=== PATIENT | female | born 1930 | race African-American/Black ===

== ENCOUNTER 2019-10-28 01:04 | Inpatient (IN) | payer MEDICARE, BC ==
[2019-10-28] MEDS ORDERED: Succinylcholine Chloride 20 MG/ML 10 ml SYRINGE FS ONE (01:11)
[2019-10-28 01:34] LABS: Hemoglobin 14.3 g/dL (12.0-16.0); Mean Corpuscular HGB CONC 32.2 g/dL (32.0-36.0); Mean Corpuscular Hemoglobin 30.5 pg (27.0-31.0); Mean Corpuscular Volume 94.7 fL (78.0-98.0); Mean Platelet Volume 7.6 fL (7.4-10.4); Platelet Count 167 thou/uL (130-400); RBC Distribution Width 13.4 % (11.5-14.5); Red Blood Cell (RBC) Count 4.68 mill/uL (4.20-5.40); White Blood Cell (WBC) Count 16.3 thou/uL (4.8-10.8)
[2019-10-28] MEDS ORDERED: Propofol 1,000 MG/100 ML VIAL IV ONE (01:34)
[2019-10-28 01:40] LABS: INR-International Normal Ratio 1.4; PTT 45.3 SEC (22.9-36.1); Prothrombin Time 17.4 SEC (12.0-14.7)
[2019-10-28 01:50] LABS: Band 3 % (5-11); Lymphocytes 40 % (21-51); MDiff Complete? YES; Monocytes 3 % (0-10); Neutrophil 54 % (42-75); Platelet Morphology Comment Appears Adequate; RBC Morphology Normal
[2019-10-28 01:52] LABS: ALT (SGPT) 166 U/L (8-55); AST (SGOT) 230 U/L (5-34); Albumin 3.4 g/dL (3.4-4.8); Alkaline Phosphatase 102 U/L (40-110); Anion Gap 21 mmol/L (10-20); BUN (Urea Nitrogen) 22 mg/dL (9.8-20.1); Bilirubin, Total 0.4 mg/dL (0.2-1.2); Calc. Creatinine Clearance 0 mL/min (70-130); Calcium 9.3 mg/dL (7.8-10.44); Carbon Dioxide 19 mmol/L (23-31); Chloride 102 mmol/L (98-107); Estimated GFR-MDRD 31; Globulin 4.1 g/dL (2.4-3.5); Glucose 238 mg/dL (83-110); Magnesium 2.4 mg/dL (1.6-2.6); Potassium 4.1 mmol/L (3.5-5.1); Protein, Total 7.5 g/dL (6.0-8.3); Sodium 138 mmol/L (136-145)
[2019-10-28 01:55] LABS: Actual Bicarbonate (HCO3a) 17.8 mEq/L (22-28); Analyzer IN Cardio ER; Base Excess (BEa) -8.1 mEq/L (-2.0 to +3.0); CO2 Tension 38.4 mmHg (35.0-45.0); Calcium, Ionized 1.23 mmol/L (1.12-1.30); Carboxyhemoglobin (COHb) 0.3 gm% (0.0-3.0); Hemoglobin (Hb) 15.6 g/dL (12.0-16.0); O2 Tension (PaO2) 191.3 mmHg (> 60.0); Potassium - ABG Lab 3.83 mmol/L (3.70-5.30); pH, Arterial 7.29 (7.35-7.45)
[2019-10-28 02:08] LABS: D-Dimer Test Greater than 20.00 *mcg/mL (0.27-0.43)
[2019-10-28 02:14] LABS: CKMB 1.5 ng/mL (0-6.6)
[2019-10-28] MEDS ORDERED: Piperacillin/Tazobactam 3.375 GM VIAL ONE (02:55)
[2019-10-28 02:58] LABS: Puncture Site RRA
[2019-10-28] MEDS ORDERED: Ondansetron PF 4 MG/2 ML Vial IVP PRN (03:05)
[2019-10-28] MEDS ORDERED: hydrALAZINE 20 MG/ML VIAL SLOW IVP PRN (03:05)
[2019-10-28] MEDS ORDERED: HYDROcodone/Acetaminophen 5/325 mg Tablet PO PRN (03:06)
[2019-10-28] MEDS ORDERED: Acetaminophen 650 MG Suppository PR PRN (03:06)
[2019-10-28] MEDS ORDERED: Bisacodyl 5 MG TAB PO PRN (03:06)
[2019-10-28] MEDS ORDERED: Senokot S 8.6-50 MG TAB PO PRN (03:06)
[2019-10-28] MEDS ORDERED: Bisacodyl 10 MG SUPP PR PRN (03:06)
[2019-10-28] MEDS ORDERED: Sodium Chloride 0.9% (PF) 10 ML VIAL FS PRN (03:25)
[2019-10-28] MEDS ORDERED: Pantoprazole 40 MG VIAL IVP SCH (03:30)
[2019-10-28] MEDS ORDERED: Heparin 10,000 UNITS/ 10 ML VIAL SLOW IVP SCH ×2 (03:30→12:30)
[2019-10-28] MEDS ORDERED: Heparin 25,000 units/D5W 500 ML IVPB SCH ×2 (03:30→12:30)
--- NOTE | 2019-10-28 03:34 | PDOC.HHP ---
Hospitalist HPI - History of Present Illness Cardiac arrest History of Present Illness: Patient is an 89 year old female with PMH hypothyroidism, HTN who presents to hospital w/ cardiac arrest witnessed, recieved CPR, epi x 1, IO, LMA, acheived ROSC. Intubated in ED. on propofol origincally. imaging in ED and in ICU significant for CT - PE which was positive for PE on ED read, also bilateral lower extremity duplex positive for extensive DVT. GCS 3 currently, off of propofol for 30 min-1hr at time of my exam. family discussion held, patient has no history or risk factors for DVT/PE, no history (personal or family) of clots , has been getting short of breath for a month, went to PCP and was referred for echocardiogram but did not get study done due to fear per daughter. Initially discussed with Dr Love and planned for hypothermia protocol and heparin drip for PE and ROSC, however patient developed extensive bleeding including lower GI bleed with BRBPR x many episodes, also bleeding in higgins and IV site bleeding, coagulation studius obtained with low fibrinogen, high PT/ INR, high FDP. lactate initially 7.2, now improved to 4. LFTs elevated , TnI elevated, IVF filter considered but discussed with Dr Love and we decided relative contraindication w/ possible DIC and GI bleed. Patient developed myoclonus as well in ICU. Hospitalist ROS - Review of Systems Other: unable to obtain due to AMS Hospitalist History - Past Medical History Other Medical History: hypothyroid, HTN - Past Surgical History Other Surgical History: back surgery - Family History Family History: reports: no pertinent history Other Family History: cancer in siblings - Social History Other Social History: no drug or alcohol abuse, lives with family - Exam General - other findings: intubated, sedated Eye: PERRL ENT - other findings: ET tube in place Neck: supple, no JVD Heart: RRR, no murmur, no gallops, no rubs Respiratory: CTAB, no wheezes, no rales, no ronchi Gastrointestinal: soft, non-tender, non-distended, normal bowel sounds, no palpable masses, no hepatomegaly, no splenomegaly, no bruit Extremities: no cyanosis, no clubbing, no edema Skin: normal turgor, no lesions, no rashes Neurological - other findings: GCS 3, posturing, not responding to commands/pain Musculoskeletal - other findings: posturing Psychiatric - other findings: unable to evauate Hospitalist Results - Labs Result Diagrams: 10/28/19 05:19 10/28/19 04:40 Lab results: WBC 16.3 thou/uL (4.8-10.8) H 10/28/19 01:22 Hgb 14.3 g/dL (12.0-16.0) 10/28/19 01:22 Hct 44.3 % (36.0-47.0) 10/28/19 01:22 MCV 94.7 fL (78.0-98.0) 10/28/19 01:22 Plt Count 167 thou/uL (130-400) 10/28/19 01:22 Band Neuts % (Manual) 3 % (5-11) L 10/28/19 01:22 ABG pH 7.29 (7.35-7.45) L 10/28/19 01:52 ABG pCO2 38.4 mmHg (35.0-45.0) 10/28/19 01:52 ABG pO2 191.3 mmHg (> 60.0) H 10/28/19 01:52 Sodium 138 mmol/L (136-145) 10/28/19 01:22 Potassium 4.1 mmol/L (3.5-5.1) 10/28/19 01:22 Chloride 102 mmol/L (98-107) 10/28/19 01:22 Carbon Dioxide 19 mmol/L (23-31) L 10/28/19 01:22 BUN 22 mg/dL (9.8-20.1) H 10/28/19 01:22 Creatinine 1.87 mg/dL (0.6-1.1) H 10/28/19 01:22 Glucose 238 mg/dL (83-110) H 10/28/19 01:22 Lactic Acid 7.2 mmol/L (0.5-2.2) H* 10/28/19 02:16 Calcium 9.3 mg/dL (7.8-10.44) 10/28/19 01:22 Total Bilirubin 0.4 mg/dL (0.2-1.2) 10/28/19 01:22 AST 230 U/L (5-34) H 10/28/19 01:22 ALT 166 U/L (8-55) H 10/28/19 01:22 Alkaline Phosphatase 102 U/L (40-110) 10/28/19 01:22 CK-MB (CK-2) 1.5 ng/mL (0-6.6) 10/28/19 01:22 Troponin I 0.054 ng/mL (< 0.028) H 10/28/19 01:22 B-Natriuretic Peptide 57.8 pg/mL (0-100) 10/28/19 01:22 Serum Total Protein 7.5 g/dL (6.0-8.3) 10/28/19 01:22 Albumin 3.4 g/dL (3.4-4.8) 10/28/19 01:22 Additional comment: BP: 118/88 MAP: 98 Pulse: 78 Resp: 20 Temp: 96.1 (Criticore Temp) Pain: UTR O2 sat: 100 on (Ventilator) Time: 10/28/2019 03:15. EKG RBBB rate 120 vitals, labs, meds reviewed, EKG reviewed Hospitalist H&P A/P - Plan Plan: Patient is an 89 year old female with PMH hypothyroidism, HTN admitted for cardiac arrest. # pulmonary embolism with cardiac arrest and rosc - presents to hospital w/ cardiac arrest witnessed, recieved CPR, epi x 1, IO, LMA, acheived ROSC. Intubated in ED. on propofol originally. imaging in ED and in ICU significant for CT - PE which was positive for PE on ED read, also bilateral lower extremity duplex positive for extensive DVT. GCS 3 currently, off of propofol for 30 min-1hr at time of my exam. family discussion held, patient has no history or risk factors for DVT/PE, no history (personal or family) of clots, has been getting short of breath for a month, went to PCP and was referred for echocardiogram but did not get study done due to fear per daughter. - Initially discussed with Dr Love and planned for hypothermia protocol and heparin drip for PE and ROSC, however patient developed extensive bleeding including lower GI bleed with BRBPR x many episodes, also bleeding in higgins and IV site bleeding, coagulation studius obtained with low fibrinogen, high PT/ INR, high FDP. lactate initially 7.2, now improved to 4. LFTs elevated , TnI elevated, IVF filter considered but discussed with Dr Love and we decided relative contraindication w/ possible DIC and GI bleed. Patient developed myoclonus as well in ICU. # respiratory failure w/ hypoxia - s/p cardiac arrest, ABG improved with ventilation # myoclonus/seizure - perhaps suggests hypoxic injury, follow final CT head read - ativan given, keppra started - consider MRI or neurology consultation based on clinical course # lactic acidosis - improved with ventilation and measures described above # coagulopathy concerning for DIC - studies and clinical picture of bleeding suggests DIC, however with normal platelets unclear if intervention indicated. will consult hematology and discuss with pulmonary medicine team # elevated troponin, elevated LFTs - likely due to hypoxia, trend LFT/troponin # GI bleed - lower GI bleed, no history of GI conditions, perhaps due to coagulopathy - start IV ppi, consult GI # severe sepsis - due to above, continue abx and recieved IVF and lactate downtrending # bleed - likely due to coagulopathy, bladder irrigation ordered 75 minutes critical care time.
[2019-10-28 03:49] LABS: #Eosinphils 0.1 thou/uL (0.0-0.7); #Lymphocytes 2.5 thou/uL (1.20-3.40); #Monocytes 1.4 thou/uL (0.11-0.59); #Neutrophils 15.3 thou/uL (1.40-6.50); %Basophils 0.2 % (0.0-1.0); %Eosinophils 0.7 % (0.0-10.0); %Monocytes 7.1 % (0.0-10.0); Hemoglobin 14.4 g/dL (12.0-16.0); Mean Corpuscular Hemoglobin 29.7 pg (27.0-31.0); Mean Corpuscular Volume 92.8 fL (78.0-98.0); Mean Platelet Volume 7.3 fL (7.4-10.4); Platelet Count 181 thou/uL (130-400); RBC Distribution Width 13.4 % (11.5-14.5); Red Blood Cell (RBC) Count 4.86 mill/uL (4.20-5.40); White Blood Cell (WBC) Count 19.4 thou/uL (4.8-10.8)
[2019-10-28 04:04] LABS: Fibrinogen 138 mg/dL (253-463)
[2019-10-28 04:11] LABS: ALT (SGPT) 185 U/L (8-55); AST (SGOT) 277 U/L (5-34); Albumin 3.4 g/dL (3.4-4.8); Alkaline Phosphatase 96 U/L (40-110); Anion Gap 15 mmol/L (10-20); BUN (Urea Nitrogen) 24 mg/dL (9.8-20.1); Bilirubin, Direct 0.4 mg/dL (0.1-0.3); Bilirubin, Total 0.8 mg/dL (0.2-1.2); Calc. Creatinine Clearance 0 mL/min (70-130); Calcium 8.9 mg/dL (7.8-10.44); Carbon Dioxide 22 mmol/L (23-31); Chloride 105 mmol/L (98-107); Estimated GFR-MDRD 33; FSP-Qualitative ABNORMAL (Normal); FSP-Semiquantitative >=160 & <320 mcg/mL (Less than 5); Glucose 179 mg/dL (83-110); Magnesium 2.2 mg/dL (1.6-2.6); Potassium 3.2 mmol/L (3.5-5.1); Protein, Total 7.2 g/dL (6.0-8.3); Sodium 139 mmol/L (136-145)
[2019-10-28 04:22] LABS: Actual Bicarbonate (HCO3a) 19.1 mEq/L (22-28); Base Excess (BEa) -5.7 mEq/L (-2.0 to +3.0); CO2 Tension 35.6 mmHg (35.0-45.0); Calcium, Ionized 1.23 mmol/L (1.12-1.30); Carboxyhemoglobin (COHb) 0.8 gm% (0.0-3.0); Hemoglobin (Hb) 15.6 g/dL (12.0-16.0); Potassium - ABG Lab 3.33 mmol/L (3.70-5.30); pH, Arterial 7.35 (7.35-7.45)
[2019-10-28 04:25] LABS: Puncture Site LRADIAL
[2019-10-28] MEDS ORDERED: Sodium Chloride 0.9% 500 ML IV SCH (04:30)
[2019-10-28] MEDS ORDERED: Sodium Chloride 0.9% 1,000 ML IV SCH (04:30)
[2019-10-28] MEDS ORDERED: levETIRAcetam In NaCl (Iso-Os) 1,000 MG in Premix Bag 1 BAG IVPB SCH ×2 (05:24→05:37)
[2019-10-28 05:27] LABS: Lactic Acid 3.8 mmol/L (0.5-2.2)
[2019-10-28 05:28] LABS: ALT (SGPT) 192 U/L (8-55); AST (SGOT) 296 U/L (5-34); Albumin 3.5 g/dL (3.4-4.8); Alkaline Phosphatase 101 U/L (40-110); Anion Gap 16 mmol/L (10-20); BUN (Urea Nitrogen) 23 mg/dL (9.8-20.1); Bilirubin, Total 1.1 mg/dL (0.2-1.2); Calc. Creatinine Clearance 0 mL/min (70-130); Calcium 9.2 mg/dL (7.8-10.44); Carbon Dioxide 22 mmol/L (23-31); Chloride 103 mmol/L (98-107); Estimated GFR-MDRD 33; Glucose 190 mg/dL (83-110); Lipase 50 U/L (8-78); Potassium 3.4 mmol/L (3.5-5.1); Protein, Total 7.5 g/dL (6.0-8.3); Sodium 138 mmol/L (136-145)
[2019-10-28] MEDS ORDERED: Lorazepam 2 MG/ML VIAL SLOW IVP SCH ×2 (05:30→05:45)
[2019-10-28 05:33] LABS: Hemoglobin 13.9 g/dL (12.0-16.0); Mean Corpuscular HGB CONC 32.1 g/dL (32.0-36.0); Mean Corpuscular Hemoglobin 29.9 pg (27.0-31.0); Mean Corpuscular Volume 92.9 fL (78.0-98.0); Platelet Count 174 thou/uL (130-400); RBC Distribution Width 13.4 % (11.5-14.5); Red Blood Cell (RBC) Count 4.67 mill/uL (4.20-5.40); White Blood Cell (WBC) Count 16.2 thou/uL (4.8-10.8)
[2019-10-28 05:40] LABS: Troponin I 0.181 ng/mL (< 0.028)
[2019-10-28 05:44] LABS: INR-International Normal Ratio 1.5; PTT 30.6 SEC (22.9-36.1); Prothrombin Time 17.8 SEC (12.0-14.7)
[2019-10-28 05:50] LABS: Lactic Acid 4.1 mmol/L (0.5-2.2)
--- NOTE | 2019-10-28 07:54 | CON ---
DATE OF CONSULTATION: 10/28/2019 SERVICE: Pulmonary/Critical Care. REASON FOR CONSULTATION: ICU patient. HISTORY OF PRESENT ILLNESS: This patient is an 89-year-old female with past medical history significant for essentially nothing. She was in her usual state of health when there was an abrupt onset of some symptoms. She had a syncopal event. She was found to be pulseless. Chest compressions were done, but in a short period of time, apparently return of circulation was achieved. She was intubated en route to the hospital. In the emergency department, she was stabilized and subsequently tucked into the ICU. She was discovered to have very large pulmonary emboli and bilateral lower extremity DVTs. The clot burden was extensive, and she had a right ventricular heart strain present. That being said, she was profusely bleeding out of her bottom, her tract, and her central line that was placed, was oozing. She also had blood coming from her mouth and ET tube. As such, she was not a good candidate for anticoagulation at that moment. Overnight, she has not been on any sedation. Neurologically, she has an absolutely devastating exam. She cannot provide any additional elements of the history. PAST MEDICAL HISTORY: 1. Hypertension. 2. Dyslipidemia. 3. Gastroesophageal reflux disease. 4. Acute pulmonary embolism. PAST SURGICAL HISTORY: Back surgery. FAMILY HISTORY: Noncontributory. Multiple siblings have various forms of cancer. SOCIAL HISTORY: Negative for alcohol, tobacco, or illicit drug use. She previously lived with her daughter. ALLERGIES: CODEINE. MEDICATIONS: List of her inpatient medications were reviewed. Multiple small updates were made. REVIEW OF SYSTEMS: Cannot be obtained as the patient is currently completely obtunded. LABORATORY DATA: WBC 16.2, hemoglobin 13.9, and platelets 174,000. INR 1.5 and gently up-trending. Fibrinogen is low. D-dimer is extremely high. PH of 7.35, pCO2 of 35, pO2 of 92, corresponding to a saturation of 97%. Potassium 3.4, creatinine 1.76 and roughly stable. Lactic acid was originally 7.2, went down to 3.8, but is once again up-trending to 4.1. Liver function studies are gently up-trending. Troponin 0.18, it is also trending upwards. Amylase 180, lipase is extremely low. IMAGING DATA: 1. Ultrasound of bilateral lower extremities demonstrates bilateral DVTs. 2. CT of the brain demonstrates no obvious blood. I would not be able to appreciate subtle changes here. The read is currently pending. 3. CTA of the chest demonstrates extensive clot burden with large pulmonary emboli bilaterally. Aorta is dilated. There is some degree of atelectasis throughout bilateral lung bacon. There is reflux of contrast into the inferior vena cava. The right ventricle is fairly distended and the septum is flattened in a couple of frames. This is suggestive of right ventricular volume overload. The left atrium is generous in size. ASSESSMENT: 1. Acute hypoxic respiratory failure. 2. Pulseless electrical activity arrest secondary to pulmonary embolism. 3. Acute pulmonary embolism. 4. Anoxic brain injury. 5. Acute kidney injury. 6. Acute liver injury. 7. Multisystem organ dysfunction. 8. Acute blood loss anemia. DISCUSSION AND PLAN: This is a very challenging situation. This patient has had an absolutely catastrophic event occur. It appears that she has developed a touch of DIC and coagulopathy, which is now reversing. I will repeat her INR and D-dimer as well as hemoglobin and hematocrit in 6 hours. If things are trending in the right direction, we will be able to initiate anticoagulation. Ideally, we would give her a dose of tPA, but because of the severe bleeding coming from multiple locations , I do not think she is a good candidate for that. I will talk to the family about the implications of this event. It is unlikely this patient is going to make any meaningful recovery from this present hospitalization. Critical Care will follow closely. CRITICAL CARE TIME: 30 minutes. Job ID: [id number] MTDD
--- NOTE | 2019-10-28 08:08 | CT ---
PRELIMINARY REPORT/[facility]/EMERGENCY AFTER HOURS PROCEDURE: Receipt of this report by the clinical staff was confirmed with Kim Youngblood MD by Myrtle Delaney on Oct 28, 2019 03:10:00 KENO WRITER. Addendum electronically signed by Myrtle Delaney on October 28, 2019 3: 12:14 AM KENO WRITER EXAM: CTA Chest with Intravenous Contrast CLINICAL HISTORY: Rain presents to the ED via EMS for evaluation of ROSC onset just [facility]. Per EMS the p t's family witnessed the arrest and called started CPR TECHNIQUE: Axial CTA images of the chest with intravenous contrast. MIP reconstructed images were cre ated and reviewed. CONTRAST: With; ISOVUE 370, 90ML COMPARISON: None provided. FINDINGS: PULMONARY ARTERIES Moderate volume of pulmonary embolus bilaterally with embolus extending into the p roximal segmental branches of the left upper lobe, into the anterior segmental branches of the lingul a; and into the apical and posterior basilar segmental branches of the left lower lobe. There is embo naomie on the right extending into the apical posterior segmental branches of the right upper lobe, the segmental branches of the right middle lobe, and the lateral and posterior basilar segmental branches of the right lower lobe. 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 LUNGS Moderate bibasilar atelectasis. Some degree of pulmonary infarction in the lingula and lower lo bes is possible. PLEURAL SPACES No pleural effusion. No pneumothorax. HEART AND MEDIASTINUM Mild cardiomegaly. There is some dilation of the right heart consistent with right heart strain as well as prominence of the pulmonary outflow tract consistent with some degree of pulmonary arterial hypertension. No significant pericardial effusion. BONES No focal osseous abnormality or acute fracture. CHEST WALL AND UPPER ABDOMEN An esophagogastric tube is present with its tip and terminal side-port i n the stomach. MISCELLANEOUS: An endotracheal tube is present with its tip terminating approximately 2.2 cm above th e andie. IMPRESSION: 1. Moderate volume of pulmonary embolus involving all lobes bilaterally, as detailed above. 2. There is some dilation of the right heart consistent with right heart strain as well as prominence of the pulmonary outflow tract consistent with some degree of pulmonary arterial hypertension. 3. Moderate bibasilar atelectasis. Some degree of pulmonary infarction in the lingula and lower lobes is possible. 4. 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 ELECTRONICALLY SIGNED BY: Mario Underwood MD Oct 28, 2019 3:06:04 AM KENO WRITER FINAL REPORT EMERGENT AFTER HOURS CT ANGIO OF CHEST PERFORMED WITH INTRAVENOUS CONTRAST ENHANCEMENT WITH 3D RECONS TRUCTIONS: HISTORY: Syncopal episode. FINDINGS: The lungs show prominent bibasilar changes probably related to atelectasis given the history of resus citation. A left lobe thyroid nodule is incidentally seen. Endotracheal and NG tubes appear to be i n satisfactory position. The aorta is tortuous. The proximal descending aorta is borderline aneurys mal measuring in the 3.5 cm range. There is good pulmonary artery opacification and fairly extensive bilateral upper and lower lobe pulm onary emboli, evidence of some mild heart stranding with some dilatation to the right heart. Visualized liver parenchyma shows no focal findings. IMPRESSION: 1. 1. Fairly extensive bilateral pulmonary emboli. 2. 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 3. Moderate bibasilar atelectasis. 4. This report is in agreement with the temporary report issued by [facility]. POS: [facility]
--- NOTE | 2019-10-28 08:12 | CT ---
PRELIMINARY REPORT/[facility]/EMERGENCY AFTER HOURS PROCEDURE EXAM: CT Head Without Intravenous Contrast. CLINICAL HISTORY: FKurt presents to the ED via EMS for evaluation of ROSC onset just [facility]. Per EMS the p t's family witnessed the arrest and called started CPR TECHNIQUE: Axial computed tomography images of the head/brain without intravenous contrast. COMPARISON: None provided. FINDINGS: BRAIN: No acute intraparenchymal hemorrhage. No mass lesion. No CT evidence for acute territorial inf arct. No midline shift or extra-axial collection. Degenerative calcification in the basal ganglia and dentate nuclei bilaterally. Diffuse cerebral atro phy. There are subcortical and deep white matter hypodensities which are nonspecific but which statis tically most likely reflect changes of chronic small vessel ischemic disease. ORBITS: The patient has undergone bilateral ocular lens replacement procedures. SINUSES AND MASTOIDS: The paranasal sinuses and mastoid air cells are clear. SOFT TISSUES: No significant facial or scalp soft tissue swelling evident. No radiopaque foreign body is seen. BONES: No acute skull fracture. MISCELLANEOUS: Endotracheal and esophagogastric tubes are present. IMPRESSION: 1. Diffuse cerebral atrophy. 2. There are subcortical and deep white matter hypodensities which are nonspecific but which statisti jacky most likely reflect changes of chronic small vessel ischemic disease. ELECTRONICALLY SIGNED BY: Mario Underwood MD Oct 28, 2019 2:47:53 AM SKIP PITMAN FINAL REPORT CT BRAIN WITHOUT CONTRAST: I agree with the preliminary report given by Dr. Mario Underwood of [facility]. POS: [facility]
--- NOTE | 2019-10-28 08:15 | ULT ---
PRELIMINARY REPORT/[facility]/AFTER HOURS PROCEDURE BILATERAL LOWER EXTREMITY VENOUS DUPLEX ULTRASOUND: CLINICAL HISTORY: DX: PE, R/O DVT Positive DVT BLE DVT RLE from FV PROX to POP D, partial to non comp, little to no b lood flow DVT LLE from FV DST to PTV DST, partial to non comp, little to no blood flow difficult exa m due to patients condition, and electrical interference. TECHNIQUE: Real-time ultrasound scan of the veins of the bilateral lower extremity with color Doppler flow, spec tral waveform analysis and compression. COMPARISON: None provided. FINDINGS: DEEP VEINS On the LEFT side: The common femoral, and proximal femoral vein regions are echolucent and compressib le. These vessels demonstrate respiratory variation and augmentation. There is normal color Doppler f low within. The mid and distal superficial femoral as well as the popliteal and posterior tibial vei n regions demonstrate partial to no compression with little to no flow. On the RIGHT side: The common femoral demonstrates respiratory variation and augmentation. There is n ormal color Doppler flow within. Little to no compression and little to no flow is noted in the prox imal, mid and distal superficial femoral veins extending into the popliteal. The visualized calf vei ns are also patent. SUPERFICIAL VEINS: The visualized greater saphenous vein is patent. SOFT TISSUES: No popliteal fossa cyst or other abnormalities. IMPRESSION: Bilateral deep vein thrombosis on the LEFT side extending from the mid superficial femoral to the pos terior tibial veins and on the RIGHT side extending from the proximal superficial femoral to the dist al popliteal veins. ELECTRONICALLY SIGNED BY: French Parra MD Oct 28, 2019 5:10:57 AM FOOD AND BEVERAGE MANAGER This report is intended for review by the ordering physician only, in accordance of law. If you recei ve this report in error, please call [facility] at [phone]. FINAL REPORT BILATERAL LOWER EXTREMITY VENOUS DUPLEX EXAMINATION: HISTORY: Bilateral leg pain and swelling. TECHNIQUE: Real-time color Doppler evaluation of the right and left lower extremities was performed from the ashli in to the calf. FINDINGS: This shows bilateral DVT. Examination was performed to include the common femoral, superficial and profunda femoral, saphenous, popliteal and posterior tibial veins. On the right side DVT was noted from the proximal thigh to the popliteal and on the left side from th e mid thigh to the posterior tibial vein with little to no flow demonstrated in these areas. IMPRESSION: Extensive bilateral lower extremity deep venous thrombosis. This report is in agreement with the temporary report issued by [facility]. CODE QA POS: [facility]
--- NOTE | 2019-10-28 09:34 | RAD ---
PORTABLE CHEST: HISTORY: Cardiac arrest. FINDINGS: Endotracheal and NG tubes are in satisfactory position. A right subclavian line is present. Catheter tip overlies the proximal superior vena cava region. There are atelectatic changes in the lung bases. IMPRESSION: 1. Bibasilar atelectasis, worse on the right. 2. Endotracheal and nasogastric tubes in satisfactory position. 3. Right sided central line. No signs of pneumothorax on this supine film. POS: [facility]
[2019-10-28] MEDS: Acetaminophen 325 MG TAB PO PRN ×2 (10:11→16:47)
[2019-10-28] MEDS ORDERED: Iopamidol-370 76% 500 ML 1 ML ONE (10:37)
[2019-10-28 11:23] LABS: Hemoglobin 14.8 g/dL (12.0-16.0)
[2019-10-28 11:24] LABS: Platelet Count 175 thou/uL (130-400)
[2019-10-28 11:31] LABS: INR-International Normal Ratio 1.3; Prothrombin Time 16.4 SEC (12.0-14.7)
[2019-10-28 11:34] LABS: Fibrinogen 154 mg/dL (253-463)
[2019-10-28 11:56] LABS: D-Dimer Test Greater than 20.00 *mcg/mL (0.27-0.43)
[2019-10-28 13:23] LABS: Bilirubin Negative (Negative); Blood, Urine 3+ (Negative); Clarity Turbid (Clear); Glucose, Urine (Dipstick) Normal (Negative); Leukocyte 500 Leu/uL (Negative); Nitrite Negative (Negative); Protein, Urine (Dipstick) 50 mg/dL (Neg-Trace); RBC/HPF Greater than 50 HPF (0-3); Squamous Epithelial 0-3 HPF (0-3); Urobilinogen Normal mg/dL (Less than 2)
[2019-10-28 13:39] LABS: Bacteria/HPF 3+ HPF (None Seen)
[2019-10-28 15:06] LABS: FSP-Qualitative ABNORMAL (Normal)
[2019-10-28 15:08] LABS: FSP-Semiquantitative >=160 & <320 mcg/mL (Less than 5)
--- NOTE | 2019-10-28 16:30 | CON ---
DATE OF CONSULTATION: REASON FOR CONSULTATION: Hematochezia, hematemesis. CONSULTING PROVIDER: Reynaldo Sheets MD HISTORY OF PRESENT ILLNESS: The patient is an 89-year-old female with past medical history of hypertension, hyperlipidemia, and GERD, who initially presented to the hospital after experiencing loss of consciousness and pulseless electrical activity. Given the patient's intubated and sedated status (no family at bedside), the majority of information obtained through chart review and discussion with nursing staff and medical staff. Per chart review, the patient apparently had a syncopal type event with pulseless electrical activity. It was observed that the patient did not have any chest compressions for approximately 15 minutes with EMS promptly arriving and starting CPR. CPR was engaged for approximately 10 to 15 minutes with return of spontaneous circulation at that time. She was apparently intubated in the field and transferred to [facility] ER for further care. During the course of her evaluation, she was noted to have a very large pulmonary embolus as well as bilateral lower extremity DVTs with extensive clot burden in both regions. However, she was also noted to have increased bleeding from all orifices and including IV lines with a large amount of hematochezia noted within the last 24 hours as well as increased bloody return on OG tube aspirate. She has not been placed on any anticoagulation at this time, although it has been considered given the presence of the large pulmonary emboli. Currently, the patient is not on any sedation, but has not been able to respond to verbal or tactile stimuli. Per nursing staff, she has been showing elements of posturing as well. REVIEW OF SYSTEMS: A 10-category review of systems could not be obtained due to the patient's altered mental status and intubated/sedated status. PAST MEDICAL HISTORY: As per HPI. PAST SURGICAL HISTORY: Back surgery. FAMILY HISTORY: Multiple siblings with various forms of cancer, although unknown relation to the patient and age as a diagnosis. SOCIAL HISTORY: No mention of alcohol, tobacco, or illicit drug use. OUTPATIENT MEDICATIONS: Reviewed. ALLERGIES: CODEINE. PHYSICAL EXAMINATION: VITAL SIGNS: Temperature 100.1, pulse 112, blood pressure 105/74, respiratory rate 14, and saturating 100% on mechanical ventilation. GENERAL: The patient was lying in bed, in no acute distress, intubated, no sedation. Unable to respond to verbal and tactile stimuli. HEENT: Normocephalic and atraumatic. Neck is supple. No JVD or scleral icterus noted. CARDIOVASCULAR: Tachycardic rate, but regular rhythm. No discernable murmurs, gallops, or rubs. RESPIRATORY: Coarse breath sounds auscultated in all lung bacon, consistent with mechanical ventilation. ABDOMEN: Hyperactive bowel sounds. Soft, nontender, and nondistended. No grimacing to palpation. EXTREMITIES: No cyanosis, clubbing, or edema. LABORATORY DATA: CBC with a white blood cell count of 16.2, hemoglobin 13.9, hematocrit 43.4, and platelets 174. INR 1.5. Chemistry with a sodium of 138, potassium 3.4, chloride 103, CO2 of 22, BUN 23, creatinine 1.76, and glucose 190. AST 296, ALT 192, alkaline phosphatase 101, and total bilirubin 1.1. Lactic acid 4.1. Troponin 0.181. IMAGING DATA: A CT angiography was performed on 10/28/2019 with moderately-sized pulmonary embolism involving the bilateral pulmonary bacon with embolus extending into multisegmental branches, mild aneurysmal dilation of the aorta, some degree of pulmonary infarction was also seen with dilation of the right heart. CT of the brain was also performed on 10/28/2019 with diffuse cerebral atrophy as well as subcortical and deep white matter hypodensities, which are nonspecific, but which statistically reflect changes with chronic small-vessel ischemic disease. ASSESSMENT AND PLAN: The patient is an 89-year-old female with past medical history of hypertension, hyperlipidemia, and gastroesophageal reflux disease, presenting to the hospital with pulseless electrical activity, most likely secondary to a large pulmonary embolus associated with hypotension, requiring chest compressions, now presenting with hematochezia, hematemesis, hematuria, and bleeding from IV lines, consistent with a coagulopathy. Hematochezia/hematemesis: The patient initially presented to the hospital with pulseless electrical activity that required cardiopulmonary resuscitation after the patient had been without a pulse for approximately 10 to 15 minutes. Return of spontaneous circulation was obtained at around 10 to 15 minutes of cardiopulmonary resuscitation and she was ultimately transferred to [facility] for further evaluation. On initial evaluation, she was noted to have an increased lactic acid and INR as well as mildly elevated liver function tests, consistent with an ischemic type process, most likely secondary to hypotension from her pulseless electrical activity. She has also been experiencing hematemesis and hematochezia, which could be due to the coagulopathy experience as noted by bleeding from her IV lines as well. However, given her significant hypotension prior to admission to the hospital, ischemic changes within the gastrointestinal tract could not be ruled out at this time with bleeding consistent with either the coagulopathy, ischemic change in the GI tract, or a combination of 2. Differential could also include esophagitis, gastritis, duodenitis, peptic ulcer disease, arteriovenous malformation, Dieulafoy lesion, ischemic colitis, and/or gastrointestinal neoplasm. RECOMMENDATIONS: 1. Would continue to trend her hemoglobin and hematocrit and transfuse as necessary to maintain hemoglobin and hematocrit of 7/21. 2. Continue to monitor clinically for signs of active GI bleeding. 3. Would attempt to reverse any coagulopathy as shown by her decrease fibrin degradation products. 4. Would continue the patient on PPI 40 mg b.i.d. for possible upper GI bleeding source. 5. We will hold on EGD and colonoscopy for now given her coagulopathy, most likely contributing to her GI bleeding and the patient's poor prognosis, but if the patient's hemoglobin and hematocrit continue to drop or if she continues to have further episodes of clinical GI bleeding, we would reconsider endoscopic management at that time. We will continue to follow. Please call with any questions. Job ID: [id number]
[2019-10-28 17:53] LABS: Hemoglobin 14.9 g/dL (12.0-16.0)
[2019-10-28] MEDS: Sodium Chloride 0.9% 1,000 ML IV SCH (19:00)
[2019-10-28] MEDS: Pantoprazole 40 MG VIAL IVP SCH (21:42)
[2019-10-29 05:28] LABS: #Monocytes 0.9 thou/uL (0.11-0.59); #Neutrophils 14.1 thou/uL (1.40-6.50); %Basophils 0.1 % (0.0-1.0); %Eosinophils 0.2 % (0.0-10.0); %Lymphocytes 11.5 % (21.0-51.0); %Neutrophils 83.2 % (42.0-75.0); Hemoglobin 14.7 g/dL (12.0-16.0); Mean Corpuscular HGB CONC 31.9 g/dL (32.0-36.0); Mean Corpuscular Hemoglobin 29.3 pg (27.0-31.0); Mean Corpuscular Volume 91.9 fL (78.0-98.0); Mean Platelet Volume 8.3 fL (7.4-10.4); Platelet Count 180 thou/uL (130-400); RBC Distribution Width 13.6 % (11.5-14.5)
[2019-10-29 05:52] LABS: ALT (SGPT) 110 U/L (8-55); AST (SGOT) 82 U/L (5-34); Albumin 3.2 g/dL (3.4-4.8); Alkaline Phosphatase 79 U/L (40-110); Anion Gap 15 mmol/L (10-20); BUN (Urea Nitrogen) 24 mg/dL (9.8-20.1); Bilirubin, Direct 0.9 mg/dL (0.1-0.3); Bilirubin, Total 1.6 mg/dL (0.2-1.2); Calc. Creatinine Clearance 29 mL/min (70-130); Calcium 9.1 mg/dL (7.8-10.44); Carbon Dioxide 21 mmol/L (23-31); Chloride 108 mmol/L (98-107); Estimated GFR-MDRD 38; Glucose 129 mg/dL (83-110); Magnesium 1.9 mg/dL (1.6-2.6); Potassium 3.1 mmol/L (3.5-5.1); Protein, Total 7.2 g/dL (6.0-8.3); Sodium 141 mmol/L (136-145)
[2019-10-29] MEDS: Pantoprazole 40 MG VIAL IVP SCH ×2 (09:14→19:51)
[2019-10-29] MEDS ORDERED: Heparin 10,000 UNITS/ 10 ML VIAL SLOW IVP SCH (10:15)
--- NOTE | 2019-10-29 10:19 | PRG ---
DATE OF SERVICE: 10/29/2019 SERVICE: Pulmonary Medicine. INTERVAL HISTORY: The patient is doing poorly from mentation standpoint. Oxygen requirements remain elevated. She is increasingly tachycardic. She cannot provide any additional elements of the history. She has been on no sedation since presentation. PHYSICAL EXAMINATION: VITAL SIGNS: Afebrile, currently with a T-max of 100.1. Pulse 116, blood pressure 136/68, respirations 17, saturation 93%, currently on 40% FiO2. GENERAL: The patient is intubated. She is completely comatose. HEENT: Normocephalic and atraumatic. Sclerae white. Conjunctivae pink. Oral mucosa is moist and without lesions. LUNGS: Decent air entry. Crackles are present. HEART: Normal rate, regular. ABDOMEN: Soft, nontender, nondistended. Bowel sounds are positive. MUSCULOSKELETAL: No cyanosis or clubbing. No pitting in the bilateral lower extremities. NEUROLOGIC: The patient is breathing over the ventilator. Today, she demonstrates a cough and little bit of a gag with significant stimulation. She has a downward gaze preference. Her corneals are working today, and she has pupils that are more responsive. That being said, she does not have any significant movement with noxious stimuli to the bilateral upper or lower extremities. LABORATORY DATA: WBC 17.0, hemoglobin 14.7, platelets 180,000. Potassium 3.1. Creatinine 1.56 and downtrending. Total bilirubin 1.6 and up trending, AST and ALT have improved. Red blood cells are greater than 50, leukocyte esterase 500, white count is 11. Blood cultures x2 and urine culture remain negative to date. ASSESSMENT: 1. Acute hypoxic respiratory failure. 2. Acute pulmonary embolism, massive. 3. Pulseless electrical activity, secondary to PE with prolonged downtime of greater than 15 minutes prior to initiation of chest compressions. 4. Anoxic brain injury, severe. 5. Acute kidney injury, resolving. 6. Acute liver injury, resolving. 7. Acute blood loss anemia, stable. 8. DIC, resolved. DISCUSSION AND PLAN: We will replace the potassium. The patient's family wants to wait for 3 days. Therefore, on Friday, we likely transition over to comfort care only. The likelihood of a meaningful neurological improvement is essentially non-existent and based on what the patient's family is telling me, she would not want to live in a persistently vegetative state. Critical Care will continue to follow along while the patient remains inhouse. Critical care time: 30 minutes. Job ID: [id number] MTDD
[2019-10-29] MEDS: Potassium Chloride 20 MEQ/100 ML PREMIX BAG IVPB SCH ×2 (12:30→14:00)
[2019-10-29] MEDS: Heparin 25,000 units/D5W 500 ML IVPB SCH (12:31)
[2019-10-29] MEDS: Sodium Chloride 0.9% 1,000 ML IV SCH ×2 (12:49→19:52)
[2019-10-29] MEDS: Acetaminophen 325 MG TAB PO PRN ×2 (12:50→22:18)
--- NOTE | 2019-10-29 13:22 | PDOC.PALCO ---
Palliative Care Consult - Consult Details Requesting Physician: Dr Love Reason for Consult: goals of care, family support Family Members Present: Spoke with family via phone - Pertinent HPI 89 year old female who has a benign overall medical history. She was seen a month ago by her primary care physician for shortness of breath and he ordered an echo, however the patient did not follow up as per the daughter "secondary to hear". At home 10/28/2019 patient had a syncopal episode and EMS was called. CPR with subsequent intubation in the emergency room. evaluation identified a large pulmonary emboli and bilateral lower extremity DVT's. Right ventricular heart strain identified. Patient was also with pronounced GI bleeding as wellas central line and Gu. Admitted to CCU for medical management unable to anticoagulant at this time, as per physician notes. - Pertinent PMH HTN, HDL, GERD, - Social History Smoking Status: Never smoker Smoking: no tobacco exposure Alcohol Use: none Drug Use History: none - Medications MAR Reviewed: Yes - Allergies Allergies/Adverse Reactions: Allergies Allergy/AdvReac Type Severity Reaction Status Date / Time Penicillins Allergy Intermediate Hives Verified 10/28/19 05:47 codeine Allergy Mild Verified 10/28/19 05:47 - Subjective Intubated, no sedation, comatose - ROS Non Response: due to endotracheal tube, due to mental status - Objective Vital Signs: Vital Signs - Most Recent Temp Pulse Resp BP Pulse Ox 98 F 110 H 15 122/94 H 97 10/29/19 12:00 10/29/19 10:36 10/29/19 12:00 10/28/19 15:18 10/29/19 08:00 Palliative Performance Scale: 20 - Physical Exam Constitutional: encephalitic, ill appearing HEENT: moist MMs Respiratory: diminished lung sound Cardiovascular: no significant murmur, RRR Gastrointestinal: non-tender, positive bowel sounds Genitourinary: higgins catheter Musculoskeletal: no cyanosis, no clubbing, no edema Deviation from normal: No purposeful movement Lymphatic: no nodes Skin: no lesions, no rash, normal turgor Deviation from normal: encephalopathic - Problem List (1) Palliative care encounter Code(s): Z51.5 - ENCOUNTER FOR PALLIATIVE CARE Current Visit: Yes Status: Acute (2) Acute respiratory failure with hypoxia Code(s): J96.01 - ACUTE RESPIRATORY FAILURE WITH HYPOXIA Current Visit: Yes Status: Acute (3) Cardiac arrest with pulseless electrical activity Code(s): I46.9 - CARDIAC ARREST, CAUSE UNSPECIFIED Current Visit: Yes Status : Acute (4) Anoxic brain injury Current Visit: Yes Status: Acute (5) Acute blood loss anemia Code(s): D62 - ACUTE POSTHEMORRHAGIC ANEMIA Current Visit: Yes Status: Acute - Plan/Recommendations Plan: Family wanting to wait until Friday to make decisions related to resuscitation status and specific goals of care. Palliative Care will follow up Friday with the family [40] minutes spent on this encounter with >50% of the time in counseling and coordination of care. Thank you for this very appropriate consult.
--- NOTE | 2019-10-29 15:52 | PDOC.HOSPP ---
- Subjective Subjective: Seen and examined. Patient intubated. Nonresponsive. No family veil what bedside this a.m. Unfortunately, poor prognosis despite maximal medical therapy. - Objective Vital Signs & Weight: Vital Signs (12 hours) Temp Pulse Resp Pulse Ox 10/29/19 14:50 114 H 10/29/19 14:00 15 10/29/19 13:16 119 H 10/29/19 12:00 98 F 15 10/29/19 10:36 110 H 10/29/19 10:00 17 10/29/19 08:00 99.1 F 19 97 10/29/19 07:28 114 H 10/29/19 06:00 14 10/29/19 04:00 99.9 F H 14 Weight Admit Weight 158 lb Weight 158 lb 15.253 oz Most Recent Monitor Data Heart Rate from ECG 115 NIBP 107/66 NIBP BP-Mean 79 Respiration from ECG 23 SpO2 100 I&O: 10/28/19 10/29/19 10/30/19 06:59 06:59 06:59 Intake Total 1600 897 250 Output Total 872 160 Balance 1600 25 90 Result Diagrams: 10/29/19 04:05 10/29/19 04:05 Radiology Reviewed by me: Yes Hospitalist ROS - Review of Systems ROS unobtainable: due to endotracheal tube - Medication Medications: Active Medications Generic Name Dose Route Start Last Admin Trade Name Freq PRN Reason Stop Dose Admin Acetaminophen 650 mg 10/28/19 03:06 10/29/19 12:50 Tylenol PO 650 mg Q4H PRN Administration Headache/Fever/Mild Pain (1-3) Heparin Sodium (Porcine) 0 units 10/29/19 10:15 10/29/19 12:32 Heparin 1,000 Units/Ml (10 Ml) SLOW IVP 5,840 unit/kg ASDIR TONE Administration Protocol Levetiracetam 500 mg/ Device 100 mls @ 200 mls/hr 10/28/19 21:00 10/29/19 10: 22 IVPB 100 mls BID TONE Administration Sodium Chloride 1,000 mls @ 30 mls/hr 10/28/19 19:00 10/29/19 12:49 Normal Saline 0.9% IV 1,000 mls .Q24H TONE Administration Heparin Sodium/Dextrose 500 mls @ 0 mls/hr 10/29/19 10:15 10/29/19 12:31 Heparin 25,000 Units/D5w 500 Ml IVPB 500 mls INF TONE Administration Protocol Per Protocol Pantoprazole Sodium 40 mg 10/28/19 21:00 10/29/19 09:14 Protonix IVP 40 mg Q12HR TONE Administration - Exam General Appearance: ill appearing Eye: PERRL, anicteric sclera ENT: normocephalic atraumatic, moist mucosa Neck: supple, symmetric, no lymphadenopathy Heart: no murmur, no gallops, no rubs Respiratory: no wheezes, no rales, no ronchi Gastrointestinal: soft, non-tender, non-distended, no guarding, no rigidity Extremities: 1+ LE edema Skin: no lesions, no rashes Neurological - other findings: Follows no commands Psychiatric: not oriented Hosp A/P (1) Pulmonary embolism Code(s): I26.99 - OTHER PULMONARY EMBOLISM WITHOUT ACUTE COR PULMONALE Status : Acute (2) GI bleeding Code(s): K92.2 - GASTROINTESTINAL HEMORRHAGE, UNSPECIFIED Status: Acute (3) Acute blood loss anemia Code(s): D62 - ACUTE POSTHEMORRHAGIC ANEMIA Status: Acute (4) Acute respiratory failure with hypoxia Code(s): J96.01 - ACUTE RESPIRATORY FAILURE WITH HYPOXIA Status: Acute (5) Anoxic brain injury Status: Acute (6) Cardiac arrest with pulseless electrical activity Code(s): I46.9 - CARDIAC ARREST, CAUSE UNSPECIFIED Status: Acute - Plan Plan: Intensive care unit Unfortunately prognosis is poor despite maximal medical therapy Palliative care consultation, recommendations appreciated Pulmonology/critical-care consultation, recommendations appreciated gastroenterology consultation, recommendations appreciated vent weaning limited secondary to mentation unable to use IV anticoagulation in the setting of massive G.I. bleeding pulmonary embolism bilaterally status post cardiopulmonary arrest with return of spontaneous circulation after CPR blood pressure support with vasoactive medications if needed blood sugar control home medications when able Disposition: Unfortunately prognosis is poor despite maximal medical therapy.
--- NOTE | 2019-10-29 17:03 | PRG ---
DATE OF SERVICE: 10/29/2019 REASON FOR CONSULTATION: Hematochezia and hematemesis. SUBJECTIVE: There were no acute events or problems overnight, although the patient's mental status has not improved at all (no change in neurological status). Over the course of the last 12 hours though, the patient has had decreased bloody output from OG tube in addition to decreased bright red blood per rectum, now with blood discerning more of a darker colored appearance/clots. However, given the fact that the patient is not currently on any sedation and with no change in her neurological status, it is concerning for poor prognosis. Per nursing staff, no episodes of vomiting, fevers, chills/rigors. OBJECTIVE: VITAL SIGNS: Temperature 99.1, pulse rate 113, blood pressure 112/77, respiratory rate 27, and saturating 100% on mechanical ventilation. GENERAL: The patient was lying in bed, in no acute distress, intubated with no sedation. The patient not responding to verbal or tactile stimuli. CARDIOVASCULAR: Tachycardic rate, but regular rhythm. RESPIRATORY: Coarse breath sounds auscultated in all lung bacon consistent with mechanical ventilation. ABDOMEN: Normoactive bowel sounds. Soft and nondistended. No grimacing to palpation. EXTREMITIES: No cyanosis, clubbing, or edema. LABORATORY DATA: CBC with a white blood cell count of 17, hemoglobin 14.7, hematocrit 46, and platelets are 180. Chemistry with a sodium of 141, potassium 3.1, chloride 108, CO2 of 21, BUN 24, creatinine 1.56, glucose 129. AST 82, ALT 110, alkaline phosphatase 79, and total bilirubin 1.6. IMAGING DATA: No current GI imaging is available for review. ASSESSMENT AND PLAN: The patient is an 89-year-old female with past medical history of hypertension, hyperlipidemia, and GERD, who initially presented to the hospital with pulseless electrical activity, most likely secondary to a large pulmonary embolus that required CPR and had return of spontaneous circulation now with hematochezia, hematemesis, hematuria, and bleeding from IV lines consistent with GI bleeding/coagulopathy. The patient initially presented to the hospital with evidence of hematemesis from the OG tube, hematochezia, hematuria, and bleeding from IV lines consistent with a diffuse coagulopathy, which was echoed by the decreased fibrinogen degradation products on serological evaluation. Over the last 24 hours, the patient has had a decrease in the amount of blood from her OG tube as well as hematochezia, now assuming more of a dark-colored blood/clot form. On review of her CBC, she actually has an up trending hemoglobin and hematocrit despite IV fluid resuscitation, making the likelihood of a significant GI bleed unlikely at this time. At this point, the most likely reason for her episodes of hematemesis and hematochezia would be secondary to coagulopathy sustained due to decreased cardiac function (no function) resulting in ischemic change throughout the GI tract or combination of the two. With the patient's current neurological status, the likelihood of a full recovery is small and based on her other medical comorbidities at this time portends a poor prognosis. RECOMMENDATIONS: 1. Would continue to trend her H and H and transfuse as necessary to maintain an H and H of 7/. 2. Continue to monitor clinically for signs of active GI bleeding. 3. Continue with more conservative/medical management for her coagulopathy. 4. We will continue the patient on PPI 40 mg b.i.d. for GI bleeding. 5. Given the patient's poor long-term outcome and devastated neurological status with low likelihood of recovery, endoscopic evaluation/management could be considered futile at this time and as such, we will continue to hold on this modality for now. 6. Given the patient's poor prognosis and the futile nature of endoscopic management, we will continue to follow peripherally for now. Please call with any questions. Job ID: [id number]
[2019-10-29 19:33] LABS: PTT Greater than 250.0 SEC (22.9-36.1)
[2019-10-30 04:24] LABS: #Eosinphils 0.1 thou/uL (0.0-0.7); #Lymphocytes 2.4 thou/uL (1.20-3.40); #Monocytes 1.2 thou/uL (0.11-0.59); #Neutrophils 12.9 thou/uL (1.40-6.50); %Basophils 0.3 % (0.0-1.0); %Eosinophils 0.4 % (0.0-10.0); %Lymphocytes 14.3 % (21.0-51.0); %Monocytes 7.3 % (0.0-10.0); %Neutrophils 77.7 % (42.0-75.0); Hemoglobin 12.4 g/dL (12.0-16.0); Mean Corpuscular HGB CONC 32.7 g/dL (32.0-36.0); Mean Corpuscular Hemoglobin 30.1 pg (27.0-31.0); Mean Corpuscular Volume 91.9 fL (78.0-98.0); Mean Platelet Volume 8.1 fL (7.4-10.4); Platelet Count 175 thou/uL (130-400); RBC Distribution Width 13.6 % (11.5-14.5); Red Blood Cell (RBC) Count 4.13 mill/uL (4.20-5.40); White Blood Cell (WBC) Count 16.6 thou/uL (4.8-10.8)
[2019-10-30 04:45] LABS: Anion Gap 12 mmol/L (10-20); BUN (Urea Nitrogen) 31 mg/dL (9.8-20.1); Calc. Creatinine Clearance 29 mL/min (70-130); Calcium 8.5 mg/dL (7.8-10.44); Carbon Dioxide 22 mmol/L (23-31); Chloride 110 mmol/L (98-107); Estimated GFR-MDRD 38; Glucose 150 mg/dL (83-110); Magnesium 1.9 mg/dL (1.6-2.6); Potassium 3.9 mmol/L (3.5-5.1); Sodium 140 mmol/L (136-145)
[2019-10-30] MEDS: Acetaminophen 325 MG TAB PO PRN ×2 (05:53→14:41)
[2019-10-30] MEDS: Pantoprazole 40 MG VIAL IVP SCH ×2 (07:30→21:24)
--- NOTE | 2019-10-30 14:05 | PRG ---
DATE OF SERVICE: 10/30/2019 SERVICE: Pulmonary Medicine. INTERVAL HISTORY: The patient is doing poorly from a neurologic standpoint. She denies any current chest discomfort, nausea, vomiting, fevers, or chills. Otherwise, there has been no interval change to her condition. There were no significant events overnight. PHYSICAL EXAMINATION: VITAL SIGNS: Afebrile with T max of 9.7, pulse of 123, blood pressure 131/82, respirations 20, saturation 99%, currently on 40% FiO2 and a PEEP of 5. GENERAL: The patient is intubated. She is on no sedation. HEENT: Normocephalic and atraumatic. Sclerae white. Conjunctivae pink. Oral mucosa is moist without lesions. LUNGS: Decent air entry. There is no prolonged expiratory phase or wheezing present. HEART: Tachycardic. Regular. ABDOMEN: Soft. Nontender, nondistended. Bowel sounds are positive. MUSCULOSKELETAL: No cyanosis or clubbing. No pitting edema. NEUROLOGIC: Pupils are equal, round, and reactive. She over breathe the ventilator. With deeper stimulation, she will have a very weak cough. Doll eyes are abnormal. With noxious stimuli at all 4 extremities, she does not withdraw. LABORATORY DATA: WBC 16.6, hemoglobin 12.4, and platelets 175,000. Creatinine 1.55, BUN 31. Bicarb 22. Basic metabolic profile is otherwise unremarkable. Magnesium 1.9. Blood cultures x2 are unremarkable. Urine culture is negative. ASSESSMENT: 1. Acute hypoxic respiratory failure. 2. Pulseless electrical activity arrest, prolonged. 3. Acute pulmonary embolism, massive. 4. Anoxic brain injury, severe. 5. Acute kidney injury, resolved. 6. Acute blood loss anemia, stable. 7. Acute liver injury, stable. DISCUSSION AND PLAN: The patient is doing fine from respiratory standpoint. Hemodynamically, she is stable. Unfortunately, she suffered a severe neurologic injury that she is unlikely to make a meaningful recovery from. We talked to the family about what the patient's wishes would be (transition over to comfort care only versus PEG tube and tracheostomy with attempt at finding a facility that can take her in this state). They are looking to have an additional 24 to 48 hours in order to make that decision, which I think is perfectly reasonable. I will continue to follow along in this location. CRITICAL CARE TIME: 30 minutes. Job ID: [id number]
[2019-10-30] MEDS: Heparin 25,000 units/D5W 500 ML IVPB SCH (14:40)
--- NOTE | 2019-10-30 15:00 | PDOC.HOSPP ---
- Subjective Subjective: Seen and examined. On the vent, she is moving her extremities more. Not following commands or awake however. Patient has not had further overt G.I. bleeding, agree with starting heparin. - Objective Vital Signs & Weight: Vital Signs (12 hours) Temp Pulse Resp Pulse Ox 10/30/19 13:16 118 H 10/30/19 12:00 99.2 F 20 10/30/19 10:47 117 H 10/30/19 10:00 18 10/30/19 08:00 17 10/30/19 07:55 128 H 10/30/19 07:00 99.7 F H 100 10/30/19 06:00 16 10/30/19 04:00 14 Weight Admit Weight 158 lb Weight 158 lb 11.725 oz Most Recent Monitor Data Heart Rate from ECG 123 NIBP 131/95 NIBP BP-Mean 107 Respiration from ECG 22 SpO2 99 I&O: 10/29/19 10/30/19 10/31/19 06:59 06:59 06:59 Intake Total 897 2826 30 Output Total 872 292 345 Balance 25 2271 -315 Result Diagrams: 10/30/19 04:00 10/30/19 04:00 Radiology Reviewed by me: Yes Hospitalist ROS - Review of Systems ROS unobtainable: due to endotracheal tube - Medication Medications: Active Medications Generic Name Dose Route Start Last Admin Trade Name Freq PRN Reason Stop Dose Admin Acetaminophen 650 mg 10/28/19 03:06 10/30/19 14:41 Tylenol PO 650 mg Q4H PRN Administration Headache/Fever/Mild Pain (1-3) Heparin Sodium (Porcine) 0 units 10/29/19 10:15 10/29/19 12:32 Heparin 1,000 Units/Ml (10 Ml) SLOW IVP 5,840 unit/kg ASDIR TONE Administration Protocol Levetiracetam 500 mg/ Device 100 mls @ 200 mls/hr 10/28/19 21:00 10/30/19 07: 29 IVPB 100 mls BID TONE Administration Sodium Chloride 1,000 mls @ 30 mls/hr 10/28/19 19:00 10/29/19 19:52 Normal Saline 0.9% IV 1,000 mls .Q24H TONE Administration Heparin Sodium/Dextrose 500 mls @ 0 mls/hr 10/29/19 10:15 10/30/19 14:40 Heparin 25,000 Units/D5w 500 Ml IVPB 500 mls INF TONE Administration Protocol Per Protocol Pantoprazole Sodium 40 mg 10/28/19 21:00 10/30/19 07:30 Protonix IVP 40 mg Q12HR TONE Administration - Exam General Appearance: ill appearing Eye: PERRL, anicteric sclera ENT: normocephalic atraumatic, moist mucosa Neck: supple, symmetric Heart: no murmur, no gallops, no rubs Respiratory: no rales, no ronchi, wheezes (Few faint) Gastrointestinal: soft, non-tender, no guarding, no rigidity Extremities: no clubbing, 1+ LE edema Skin: no lesions, no rashes Neurological - other findings: Limited secondary to clinical condition Psychiatric: not oriented Hosp A/P (1) Pulmonary embolism Code(s): I26.99 - OTHER PULMONARY EMBOLISM WITHOUT ACUTE COR PULMONALE Status : Acute (2) GI bleeding Code(s): K92.2 - GASTROINTESTINAL HEMORRHAGE, UNSPECIFIED Status: Acute (3) Acute blood loss anemia Code(s): D62 - ACUTE POSTHEMORRHAGIC ANEMIA Status: Acute (4) Acute respiratory failure with hypoxia Code(s): J96.01 - ACUTE RESPIRATORY FAILURE WITH HYPOXIA Status: Acute (5) Anoxic brain injury Status: Acute (6) Cardiac arrest with pulseless electrical activity Code(s): I46.9 - CARDIAC ARREST, CAUSE UNSPECIFIED Status: Acute - Plan Plan: Intensive care unit Unfortunately prognosis is poor despite maximal medical therapy Palliative care consultation, recommendations appreciated Pulmonology/critical-care consultation, recommendations appreciated gastroenterology consultation, recommendations appreciated vent weaning limited secondary to mentation No overt GI bleeding while in the hospital, agree with starting Heparin. If develops GI bleeding or drop in hemoglobin/ hematocrit - then would DC HEPARIN IMMEDIATELY pulmonary embolism bilaterally status post cardiopulmonary arrest with return of spontaneous circulation after CPR blood pressure support with vasoactive medications if needed blood sugar control home medications when able Disposition: Unfortunately prognosis is poor despite maximal medical therapy.
[2019-10-30 16:00] LABS: Bacteria/HPF 2+ HPF (None Seen); RBC/HPF Greater than 50 HPF (0-3); Squamous Epithelial None Seen HPF (0-3)
[2019-10-30] MEDS ORDERED: Scopolamine 1.5 mg/72 hour Patch TOP SCH (16:00)
[2019-10-30 17:13] LABS: Clarity Turbid (Clear); Leukocyte Negative Leu/uL (Negative); Nitrite Negative (Negative); Protein, Urine (Dipstick) 10 mg/dL (Neg-Trace)
[2019-10-30 17:14] LABS: Bilirubin Negative (Negative); Blood, Urine 3+ (Negative); Glucose, Urine (Dipstick) Normal (Negative); Urobilinogen Normal mg/dL (Less than 2)
[2019-10-31 06:03] LABS: Hemoglobin 11.4 g/dL (12.0-16.0); Mean Corpuscular HGB CONC 32.8 g/dL (32.0-36.0); Mean Corpuscular Volume 91.7 fL (78.0-98.0); Mean Platelet Volume 8.2 fL (7.4-10.4); Platelet Count 202 thou/uL (130-400); RBC Distribution Width 13.6 % (11.5-14.5)
[2019-10-31 06:16] LABS: Band 11 % (5-11); Eosinophils 1 % (0-10); Lymphocytes 20 % (21-51); MDiff Complete? YES; Monocytes 8 % (0-10); Neutrophil 60 % (42-75); Platelet Morphology Comment Appears Adequate; Vacuoles SLIGHT
[2019-10-31] MEDS: Acetaminophen 325 MG TAB PO PRN (09:10)
[2019-10-31] MEDS: Pantoprazole 40 MG VIAL IVP SCH ×2 (09:11→21:07)
[2019-10-31] MEDS: Heparin 25,000 units/D5W 500 ML IVPB SCH (09:19)
[2019-10-31] MEDS: Sodium Chloride 0.9% 1,000 ML IV SCH (09:19)
--- NOTE | 2019-10-31 12:24 | PRG ---
DATE OF SERVICE: 10/31/2019 SERVICE: Pulmonary Medicine. INTERVAL HISTORY: The patient is doing okay from a metabolic standpoint. That being said, she has made no neurologic recovery in the last 24 hours. She cannot provide any additional elements of the history. PHYSICAL EXAMINATION: VITAL SIGNS: T-max 101. Pulse 114, blood pressure 124/78, respirations 22, and saturation 100%, currently on 40% FiO2. GENERAL: The patient is intubated. She has been on no sedation for 3 days now. HEENT: Normocephalic and atraumatic. Sclerae are white. Conjunctivae are pink. Oral mucosa is moist without lesions. LUNGS: Decent air entry. There is a prolonged expiratory phase, but no wheezing. HEART: Normal rate, regular. ABDOMEN: Soft, nontender, and nondistended. Bowel sounds are positive. MUSCULOSKELETAL: No cyanosis or clubbing. No pitting in the bilateral lower extremities. NEUROLOGIC: The patient does not withdraw from noxious stimuli in the upper or lower extremities. She demonstrates a crossed extensor reflex in the bilateral lower extremities. It is more brisk on the left compared to the right. She does not close her eyes with confrontation. Her doll's eyes are normal, she over breathe the ventilator and demonstrates a cough and gag with very deep stimulation. That being said, those reflexes are not robust. Pupils are equal and round and sluggishly reactive with light. LABORATORY DATA: WBC 16.0, hemoglobin 11.4, and platelets 202,000. Creatinine 1.55, BUN 31. Basic metabolic profile is otherwise unremarkable. Magnesium falls within the normal limits. Urinalysis is unremarkable. Blood cultures x4, urine culture, respiratory culture are negative to date. ASSESSMENT: 1. Acute hypoxic respiratory failure. 2. Pulseless electrical activity arrest, prolonged. 3. Acute pulmonary embolism, massive. 4. Anoxic brain injury, severe. 5. Acute kidney injury, resolved. 6. Acute blood loss anemia. DISCUSSION AND PLAN: The patient is doing fine from a respiratory standpoint. Her body is putting itself back to together. Unfortunately, over the last 72 hours, the patient has made no neurologic recovery whatsoever. At this point, we are discussing whether or not to transition over to comfort care only, or pursuing PEG tube and tracheostomy for outpatient continued care. Critical Care will follow in this location. CRITICAL CARE TIME: 30 minutes. Job ID: [id number]
--- NOTE | 2019-10-31 13:27 | PDOC.HOSPP ---
- Subjective Subjective: Seen and examined. Intubated sedated. Family at bedside, many questions are asked, all answered in detail. Patient's family happy with plan of care. - Objective Vital Signs & Weight: Vital Signs (12 hours) Temp Pulse Resp BP Pulse Ox 10/31/19 12:00 100.7 F H 17 10/31/19 10:20 112 H 10/31/19 10:00 21 H 10/31/19 08:04 116 H 10/31/19 08:00 20 98 10/31/19 07:00 101 F H 10/31/19 06:00 17 10/31/19 04:00 99.7 F H 19 10/31/19 03:18 116 H 112/81 10/31/19 02:00 18 Weight Admit Weight 158 lb Weight 158 lb 11.725 oz Most Recent Monitor Data Heart Rate from ECG 105 NIBP 111/69 NIBP BP-Mean 83 Respiration from ECG 17 SpO2 98 I&O: 10/30/19 10/31/19 11/01/19 06:59 06:59 06:59 Intake Total 2826 2704 60 Output Total 555 1265 390 Balance 2271 1439 -330 Result Diagrams: 10/31/19 04:40 10/30/19 04:00 Radiology Reviewed by me: Yes Hospitalist ROS - Review of Systems ROS unobtainable: due to endotracheal tube - Medication Medications: Active Medications Generic Name Dose Route Start Last Admin Trade Name Freq PRN Reason Stop Dose Admin Acetaminophen 650 mg 10/28/19 03:06 10/31/19 09:10 Tylenol PO 650 mg Q4H PRN Administration Headache/Fever/Mild Pain (1-3) Heparin Sodium (Porcine) 0 units 10/29/19 10:15 10/29/19 12:32 Heparin 1,000 Units/Ml (10 Ml) SLOW IVP 5,840 unit/kg ASDIR TONE Administration Protocol Levetiracetam 500 mg/ Device 100 mls @ 200 mls/hr 10/28/19 21:00 10/31/19 09: 10 IVPB 100 mls BID TONE Administration Sodium Chloride 1,000 mls @ 30 mls/hr 10/28/19 19:00 10/31/19 09:19 Normal Saline 0.9% IV 1,000 mls .Q24H TONE Administration Heparin Sodium/Dextrose 500 mls @ 0 mls/hr 10/29/19 10:15 10/31/19 09:19 Heparin 25,000 Units/D5w 500 Ml IVPB 500 mls INF TONE Administration Protocol Per Protocol Levofloxacin 750 mg/ Device 150 mls @ 100 mls/hr 10/30/19 16:00 10/30/19 15: 35 IVPB 150 mls 1600 TONE Administration Pantoprazole Sodium 40 mg 10/28/19 21:00 10/31/19 09:11 Protonix IVP 40 mg Q12HR TONE Administration Scopolamine 1.5 mg 10/30/19 16:00 10/30/19 15:41 Transderm Scop TOP 1.5 mg Q3D TONE Administration - Exam General Appearance: ill appearing Eye: PERRL ENT: normocephalic atraumatic, dry oral mucosa Neck: supple, no JVD, no lymphadenopathy Heart: no murmur, no gallops, no rubs Respiratory: CTAB, no wheezes, no rales, no ronchi, no tachypnea Gastrointestinal: soft, non-tender, no guarding, no rigidity Extremities: 1+ LE edema Skin: no lesions, no rashes Neurological - other findings: Limited secondary to clinical condition Psychiatric: not oriented Hosp A/P (1) Pulmonary embolism Code(s): I26.99 - OTHER PULMONARY EMBOLISM WITHOUT ACUTE COR PULMONALE Status : Acute (2) GI bleeding Code(s): K92.2 - GASTROINTESTINAL HEMORRHAGE, UNSPECIFIED Status: Acute (3) Acute blood loss anemia Code(s): D62 - ACUTE POSTHEMORRHAGIC ANEMIA Status: Acute (4) Acute respiratory failure with hypoxia Code(s): J96.01 - ACUTE RESPIRATORY FAILURE WITH HYPOXIA Status: Acute (5) Anoxic brain injury Status: Acute (6) Cardiac arrest with pulseless electrical activity Code(s): I46.9 - CARDIAC ARREST, CAUSE UNSPECIFIED Status: Acute - Plan Plan: Intensive care unit Unfortunately prognosis is poor despite maximal medical therapy Palliative care consultation, recommendations appreciated Pulmonology/critical-care consultation, recommendations appreciated gastroenterology consultation, recommendations appreciated vent weaning limited secondary to mentation No overt GI bleeding while in the hospital, agree with starting Heparin. If develops massive GI bleeding or drop in hemoglobin/ hematocrit - then would DC HEPARIN IMMEDIATELY pulmonary embolism bilaterally status post cardiopulmonary arrest with return of spontaneous circulation after CPR blood pressure support with vasoactive medications if needed blood sugar control continue home medications as able Disposition: Unfortunately prognosis is poor despite maximal medical therapy.
[2019-10-31] MEDS: Lorazepam 2 MG/ML VIAL SLOW IVP PRN (18:45)
[2019-11-01] MEDS: Lorazepam 2 MG/ML VIAL SLOW IVP PRN ×3 (00:07→08:52)
[2019-11-01 05:27] LABS: Mean Corpuscular HGB CONC 32.5 g/dL (32.0-36.0); Mean Corpuscular Hemoglobin 29.9 pg (27.0-31.0); Mean Corpuscular Volume 91.9 fL (78.0-98.0); Mean Platelet Volume 8.1 fL (7.4-10.4); Platelet Count 221 thou/uL (130-400); RBC Distribution Width 13.5 % (11.5-14.5); Red Blood Cell (RBC) Count 3.35 mill/uL (4.20-5.40); White Blood Cell (WBC) Count 16.2 thou/uL (4.8-10.8)
[2019-11-01 05:28] LABS: Band 13 % (5-11); Eosinophils 3 % (0-10); Lymphocytes 17 % (21-51); MDiff Complete? YES; Monocytes 11 % (0-10); Myelocyte 1 % (0-0); Neutrophil 55 % (42-75); Nucleated RBC 1 % (0)
[2019-11-01] MEDS: Pantoprazole 40 MG VIAL IVP SCH ×2 (08:51→20:55)
[2019-11-01] MEDS: Acetaminophen 325 MG TAB PO PRN ×2 (08:52→21:01)
[2019-11-01] MEDS: Heparin 25,000 units/D5W 500 ML IVPB SCH (08:56)
[2019-11-01] MEDS ORDERED: Metoprolol Tartrate 25 MG TAB PER TUBE SCH (10:00)
[2019-11-01] MEDS ORDERED: Enoxaparin Sodium 60 MG/0.6 ML SYRINGE SC SCH (10:00)
--- NOTE | 2019-11-01 10:16 | PRG ---
DATE OF SERVICE: 11/01/2019 SERVICE: Pulmonary Medicine. INTERVAL HISTORY: The patient is doing poorly from a neurologic standpoint. She started having some tremulous movements. That being said, they do not appear to have seizure-like characteristics. She cannot provide any additional elements of the history. Otherwise, she remains in a comatose state. She has not been on any sedation since she has been in the hospital over these past 4 days. LABORATORY DATA: WBC 16.2, hemoglobin 10.0, and platelets 221,000. Blood cultures x4 and urine culture x2 and respiratory culture are all unremarkable. ASSESSMENT: 1. Acute hypoxic respiratory failure. 2. Pulseless electrical activity, prolonged, [id number]. 3. Acute pulmonary embolism, massive. 4. Anoxic brain injury, severe. 5. Acute kidney injury, resolved. 6. Acute blood loss anemia, stable. DISCUSSION AND PLAN: From a respiratory standpoint, the patient is actually doing fairly well. That being said, she suffered catastrophic brain injury from which she will not make a functional recovery. We will continue having conversations with the patient's family about end of life care and discussions. At this point, we either need to proceed with tracheostomy, PEG tube placement, and transition to intermediate care, or transition over to comfort care only. We are looking for direction from the family at this point. Critical Care will follow. Job ID: [id number]
--- NOTE | 2019-11-01 11:29 | PDOC.PALPN ---
Palliative Progress Note - Subjective intubated, non responsive. - Objective Vital Signs: Vital Signs - Most Recent Temp Pulse Resp BP Pulse Ox 103.3 F H 124 H 27 H 113/67 100 11/01/19 08:00 11/01/19 10:25 11/01/19 10:00 11/01/19 10:25 10/31/19 20:00 - Physical Exam Constitutional: encephalitic, ill appearing HEENT: moist MMs, sclera anicteric Respiratory: diminished lung sound Deviation from normal: Mechanical ventilation Cardiovascular: RRR Gastrointestinal: non-tender, positive bowel sounds, incontinent Genitourinary: higgins catheter (Dark urine) Musculoskeletal: muscle wasting Deviation from normal: focal deficits Skin: no lesions, no rash, fragile - Assessment (1) Palliative care encounter Code(s): Z51.5 - ENCOUNTER FOR PALLIATIVE CARE Current Visit: Yes Status: Acute (2) Acute respiratory failure with hypoxia Code(s): J96.01 - ACUTE RESPIRATORY FAILURE WITH HYPOXIA Current Visit: Yes Status: Acute (3) Cardiac arrest with pulseless electrical activity Code(s): I46.9 - CARDIAC ARREST, CAUSE UNSPECIFIED Current Visit: Yes Status : Acute (4) Anoxic brain injury Current Visit: Yes Status: Acute (5) Acute blood loss anemia Code(s): D62 - ACUTE POSTHEMORRHAGIC ANEMIA Current Visit: Yes Status: Acute - Plan Plan: Conversation with patient daughter at bedside. Reviewed current conditions and poor potential for meaningful recovery. Discussed Trach and LTC verses compassionate extubation and possible transition to hospice. Daughter asked several questions. Wants to have patient sister come up and have information as well. Hesitant to make a decision relating specifics for goal of care, revisited resuscitation status. Will follow up this afternoon to further visit with family as needed to determine goal of care for patient. [60] minutes spent on this encounter with >50% of the time in counseling and coordination of care. - ROS Non Response: due to endotracheal tube, due to mental status
[2019-11-01 14:50] VITALS: BMI 28.3
--- NOTE | 2019-11-01 16:09 | PDOC.HOSPP ---
- Subjective Subjective: Seen and examined. No clinical change. Unfortunately for this patient prognosis remains very poor, despite maximal medical therapy. - Objective Vital Signs & Weight: Vital Signs (12 hours) Temp Pulse Resp BP Pulse Ox 11/01/19 14:39 114 H 101/62 11/01/19 14:00 24 H 11/01/19 12:00 99.6 F 24 H 11/01/19 10:25 124 H 113/67 11/01/19 10:00 27 H 11/01/19 08:00 103.3 F H 33 H 100 11/01/19 07:53 135 H 116/71 11/01/19 06:00 15 Weight Admit Weight 158 lb Weight 164 lb 14.492 oz Most Recent Monitor Data Heart Rate from ECG 118 NIBP 101/62 NIBP BP-Mean 75 Respiration from ECG 29 SpO2 100 I&O: 10/31/19 11/01/19 11/02/19 06:59 06:59 06:59 Intake Total 2704 2655 143.6 Output Total 1265 1500 410 Balance 1439 1155 -266.4 Result Diagrams: 11/01/19 03:34 10/30/19 04:00 Radiology Reviewed by me: Yes Hospitalist ROS - Review of Systems ROS unobtainable: due to mental status - Medication Medications: Active Medications Generic Name Dose Route Start Last Admin Trade Name Freq PRN Reason Stop Dose Admin Acetaminophen 650 mg 10/28/19 03:06 11/01/19 08:52 Tylenol PO 650 mg Q4H PRN Administration Headache/Fever/Mild Pain (1-3) Levetiracetam 500 mg/ Device 100 mls @ 200 mls/hr 10/28/19 21:00 11/01/19 08: 50 IVPB 100 mls BID TONE Administration Sodium Chloride 1,000 mls @ 30 mls/hr 10/28/19 19:00 10/31/19 09:19 Normal Saline 0.9% IV 1,000 mls .Q24H TONE Administration Levofloxacin 750 mg/ Device 150 mls @ 100 mls/hr 10/30/19 16:00 10/31/19 16: 01 IVPB 150 mls 1600 TONE Administration Lorazepam 2 mg 10/31/19 18:42 11/01/19 08:52 Ativan SLOW IVP 2 mg Q1H PRN Administration . Pantoprazole Sodium 40 mg 10/28/19 21:00 11/01/19 08:51 Protonix IVP 40 mg Q12HR TONE Administration Scopolamine 1.5 mg 10/30/19 16:00 10/30/19 15:41 Transderm Scop TOP 1.5 mg Q3D TONE Administration - Exam General Appearance: ill appearing Eye: anicteric sclera ENT: normocephalic atraumatic, moist mucosa Neck: supple, symmetric, no lymphadenopathy Heart: no murmur, no gallops, no rubs Respiratory: CTAB, no wheezes, no rales, no ronchi, normal chest expansion Gastrointestinal: soft, non-tender, no guarding, no rigidity Extremities: no clubbing, no edema Skin: no lesions, no rashes Neurological - other findings: Follows no commands Musculoskeletal: diffuse muscle atrophy Hosp A/P (1) Pulmonary embolism Code(s): I26.99 - OTHER PULMONARY EMBOLISM WITHOUT ACUTE COR PULMONALE Status : Acute (2) GI bleeding Code(s): K92.2 - GASTROINTESTINAL HEMORRHAGE, UNSPECIFIED Status: Acute (3) Acute blood loss anemia Code(s): D62 - ACUTE POSTHEMORRHAGIC ANEMIA Status: Acute (4) Acute respiratory failure with hypoxia Code(s): J96.01 - ACUTE RESPIRATORY FAILURE WITH HYPOXIA Status: Acute (5) Anoxic brain injury Status: Acute (6) Cardiac arrest with pulseless electrical activity Code(s): I46.9 - CARDIAC ARREST, CAUSE UNSPECIFIED Status: Acute - Plan Plan: Intensive care unit Unfortunately prognosis is poor despite maximal medical therapy Palliative care consultation, recommendations appreciated Pulmonology/critical-care consultation, recommendations appreciated gastroenterology consultation, recommendations appreciated vent weaning limited secondary to mentation No overt GI bleeding while in the hospital, agree with IV anticoagulation. If develops massive GI bleeding or drop in hemoglobin/ hematocrit - then would DC IV ANTICOAGULATION pulmonary embolism bilaterally status post cardiopulmonary arrest with return of spontaneous circulation after CPR blood pressure support with vasoactive medications if needed blood sugar control continue home medications as able Disposition: Unfortunately prognosis is poor despite maximal medical therapy.
[2019-11-01] MEDS: Sodium Chloride 0.9% 1,000 ML IV SCH (19:52)
[2019-11-01] MEDS: Metoprolol Tartrate 25 MG TAB PER TUBE SCH (20:55)
[2019-11-02 04:58] LABS: Mean Corpuscular HGB CONC 32.5 g/dL (32.0-36.0); Mean Corpuscular Hemoglobin 29.9 pg (27.0-31.0); Mean Corpuscular Volume 91.8 fL (78.0-98.0); Mean Platelet Volume 7.9 fL (7.4-10.4); Platelet Count 253 thou/uL (130-400); RBC Distribution Width 13.6 % (11.5-14.5); Red Blood Cell (RBC) Count 3.01 mill/uL (4.20-5.40); White Blood Cell (WBC) Count 16.7 thou/uL (4.8-10.8)
[2019-11-02 05:05] LABS: Anion Gap 13 mmol/L (10-20); BUN (Urea Nitrogen) 30 mg/dL (9.8-20.1); Calc. Creatinine Clearance 37 mL/min (70-130); Calcium 8.6 mg/dL (7.8-10.44); Carbon Dioxide 23 mmol/L (23-31); Chloride 104 mmol/L (98-107); Estimated GFR-MDRD 49; Glucose 104 mg/dL (83-110); Magnesium 1.6 mg/dL (1.6-2.6); Potassium 3.3 mmol/L (3.5-5.1); Sodium 137 mmol/L (136-145)
[2019-11-02 05:29] LABS: Band 7 % (5-11); Eosinophils 2 % (0-10); Lymphocytes 21 % (21-51); MDiff Complete? YES; Metamyelocyte 1 % (0-0); Monocytes 8 % (0-10); Myelocyte 1 % (0-0); Neutrophil 60 % (42-75)
[2019-11-02] MEDS: Acetaminophen 325 MG TAB PO PRN (07:44)
[2019-11-02] MEDS: Pantoprazole 40 MG VIAL IVP SCH (07:44)
[2019-11-02] MEDS: Metoprolol Tartrate 25 MG TAB PER TUBE SCH (07:45)
[2019-11-02] MEDS ORDERED: Enoxaparin Sodium 60 MG/0.6 ML SYRINGE SC SCH (09:00)
--- NOTE | 2019-11-02 10:14 | PRG ---
DATE OF SERVICE: 11/02/2019 SERVICE: Pulmonary Medicine. INTERVAL HISTORY: The patient's heart rate is doing better, her oxygenation is improved. That being said, mentation naranjo, she has not made any recovery. She cannot provide any additional elements of the history. Otherwise, there were no significant overnight events other than some low-grade temperatures. PHYSICAL EXAMINATION: VITAL SIGNS: Afebrile. Pulse 103, blood pressure 106/70, respirations 20, and saturation 100%, currently on 40% FiO2 and a PEEP of 5. GENERAL: The patient is intubated. She has been on no sedation for five days. HEENT: Normocephalic and atraumatic. Sclerae white. Conjunctivae pink. Oral mucosa is moist without lesions. LUNGS: Decent air entry. No prolonged expiratory phase or wheezing is appreciated. HEART: Normal rate, regular. ABDOMEN: Soft, nontender, nondistended, bowel sounds are positive. MUSCULOSKELETAL: No cyanosis or clubbing. There is no pitting in the bilateral lower extremities. NEUROLOGIC: She has crossed extensor reflex bilateral lower extremities. With the upper extremity, she postures. She is overbreathing the ventilator. She requires very deep suctioning, or very strong stimulation in the back of the throat to stimulate a cough or gag. Her pupils are sluggishly reactive. LABORATORY DATA: WBC 16.7, hemoglobin 9.0, platelets 253,000. PH of 7.35, pCO2 of 35, PO2 of 92. Creatinine 1.24 and gently downtrending, BUN 30. Basic metabolic profile is unremarkable. Magnesium 1.6, potassium 3.3. Urinalysis was previously unremarkable. Blood cultures x4 and urine culture x2, and respiratory culture remain negative. ASSESSMENT: 1. Acute hypoxic respiratory failure. 2. Pulseless electrical activity, prolonged, [id number]. 3. Acute pulmonary embolism, massive. 4. Anoxic brain injury, severe. 5. Acute kidney injury, resolved. 6. Acute blood loss anemia, stable. DISCUSSION AND PLAN: The patient is stable from a respiratory standpoint. That being said, she has not made any neurologic recovery over a period of 5 days. As such, the family is electing to transition over to comfort care only. They are planning on doing this between 11 and 12 o'clock this morning. If she continues to breathe, she can be transitioned to the floor with Ativan and morphine to be used on a p.r.n. basis. If she breathes well through the day, we should consider transition out of the hospital with the care of hospice either at an inpatient facility, or at home per family's preference. When she leaves the ICU, she will have no further requirements for inpatient Pulmonary Critical Care opinion, and I will sign off. Please call with additional questions or concerns through time. Job ID: [id number]
[2019-11-02 10:39] VITALS: BP 112/79
[2019-11-02] MEDS: Lorazepam 2 MG/ML VIAL SLOW IVP PRN ×5 (13:15→18:06)
[2019-11-02] MEDS: Morphine 2 MG/ML SYRINGE SLOW IVP PRN ×5 (13:15→18:05)
--- NOTE | 2019-11-02 14:10 | PDOC.HOSPP ---
- Subjective Subjective: Seen and examined. Unfortunately the patient has not made any neurological improvements. With severe anoxic brain injury it is unlikely that the patient will ever recover. How to hospital arrest with prolonged period of hypoxia was too much for the patient's body to recover from. Pulmonary status stable. No bleeding from digestive tract. Unfortunately despite maximal medical therapy this patient will not make a recovery. Discuss case at length with patient's daughter. She is interested in a do not attempt resuscitation. Due to the critical nature of patient's illness and the low probability that she would ever be weaned from a ventilator I agree with her decision. Time was given for questions, all questions answered in detail. Patient's daughter happy with plan of care. - Objective Vital Signs & Weight: Vital Signs (12 hours) Temp Pulse Resp BP Pulse Ox 11/02/19 12:00 100.2 F H 26 H 11/02/19 10:37 105 H 112/79 11/02/19 10:00 20 11/02/19 08:00 102.8 F H 19 100 11/02/19 07:28 129 H 125/73 11/02/19 06:00 22 H 11/02/19 04:00 100.0 F H 18 11/02/19 03:52 110 H 115/66 Weight Admit Weight 158 lb Weight 160 lb 0.889 oz Most Recent Monitor Data Heart Rate from ECG 109 NIBP 107/67 NIBP BP-Mean 80 Respiration from ECG 25 SpO2 100 I&O: 11/01/19 11/02/19 11/03/19 06:59 06:59 06:59 Intake Total 2655 2755.6 300 Output Total 1500 1375 550 Balance 1155 1380.6 -250 Result Diagrams: 11/02/19 03:50 11/02/19 03:50 Radiology Reviewed by me: Yes Hospitalist ROS - Review of Systems ROS unobtainable: due to mental status - Medication Medications: Active Medications Generic Name Dose Route Start Last Admin Trade Name Freq PRN Reason Stop Dose Admin Lorazepam 2 mg 11/02/19 10:25 11/02/19 13:33 Ativan SLOW IVP 2 mg Q15MIN PRN Administration Agitation/Air hunger Morphine Sulfate 2 mg 11/02/19 10:26 11/02/19 13:45 Morphine SLOW IVP 2 mg Q15MIN PRN Administration Agitation/Air hunger - Exam General Appearance: ill appearing Eye: anicteric sclera ENT: normocephalic atraumatic, moist mucosa Neck: supple, symmetric, no lymphadenopathy Heart: no murmur, no gallops, normal peripheral pulses Respiratory: no rales, no ronchi, normal chest expansion, wheezes (faint) Gastrointestinal: soft, non-tender, no guarding, no rigidity Extremities: 1+ LE edema Skin: no lesions, no rashes Neurological - other findings: Follows no commands. Does not withdrawl from noxious stimuli. Off sedation Psychiatric: not oriented Hosp A/P (1) Pulmonary embolism Code(s): I26.99 - OTHER PULMONARY EMBOLISM WITHOUT ACUTE COR PULMONALE Status : Acute (2) GI bleeding Code(s): K92.2 - GASTROINTESTINAL HEMORRHAGE, UNSPECIFIED Status: Acute (3) Acute blood loss anemia Code(s): D62 - ACUTE POSTHEMORRHAGIC ANEMIA Status: Acute (4) Acute respiratory failure with hypoxia Code(s): J96.01 - ACUTE RESPIRATORY FAILURE WITH HYPOXIA Status: Acute (5) Anoxic brain injury Status: Acute (6) Cardiac arrest with pulseless electrical activity Code(s): I46.9 - CARDIAC ARREST, CAUSE UNSPECIFIED Status: Acute - Plan Plan: Intensive care unit Unfortunately prognosis is poor despite maximal medical therapy Palliative care consultation, recommendations appreciated Pulmonology/critical-care consultation, recommendations appreciated gastroenterology consultation, recommendations appreciated vent weaning limited secondary to mentation No overt GI bleeding while in the hospital, agree with IV anticoagulation. If develops massive GI bleeding or drop in hemoglobin/ hematocrit - then would DC IV ANTICOAGULATION pulmonary embolism bilaterally status post cardiopulmonary arrest with return of spontaneous circulation after CPR blood pressure support with vasoactive medications if needed blood sugar control continue home medications as able Disposition: Patients daughter has elected for Do not attempt resuscitation, we will honor her wishes. Possible compassionate extubation today if family is ready. Unfortunately prognosis is poor despite maximal medical therapy.
--- NOTE | 2019-11-02 16:18 | PDOC.PALPN ---
Palliative Progress Note - Subjective on room air, compassionate extubation. Non responsive. Patient daughter and Patient sister at bedside. - Objective Vital Signs: Vital Signs - Most Recent Temp Pulse Resp BP Pulse Ox 100.2 F H 105 H 26 H 112/79 100 11/02/19 12:00 11/02/19 10:37 11/02/19 12:00 11/02/19 10:37 11/02/19 08:00 - Physical Exam Constitutional: encephalitic, mild distress HEENT: moist MMs, sclera anicteric Respiratory: diminished lung sound, labored respirations Cardiovascular: RRR Gastrointestinal: non-tender, no distention, incontinent Genitourinary: higgins catheter Musculoskeletal: edema present Skin: no lesions Deviation from normal: non responsive - Assessment (1) Palliative care encounter Code(s): Z51.5 - ENCOUNTER FOR PALLIATIVE CARE Current Visit: Yes Status: Acute (2) Acute respiratory failure with hypoxia Code(s): J96.01 - ACUTE RESPIRATORY FAILURE WITH HYPOXIA Current Visit: Yes Status: Acute (3) Cardiac arrest with pulseless electrical activity Code(s): I46.9 - CARDIAC ARREST, CAUSE UNSPECIFIED Current Visit: Yes Status : Acute (4) Anoxic brain injury Current Visit: Yes Status: Acute (5) Acute blood loss anemia Code(s): D62 - ACUTE POSTHEMORRHAGIC ANEMIA Current Visit: Yes Status: Acute - Plan Plan: Theraputic listening with family and emotional support. Discussed hospice care at length. Answered questions in relation to support and care hospice offers as well as questions the daughter has in relation to end of life for her mother. Family awaiting to have patient transferred out of unit and to a regular private room. *Family requesting hospice care with [facility] *Choice letter for hospice completed and left on chart. *CM and physician notified [60] minutes spent on this encounter with >50% of the time in counseling and coordination of care. - ROS Non Response: due to mental status
[2019-11-02 17:54] VITALS: TEMP 98.6
== END 2019-11-02 18:32 | disposition hospice, inpatient (51) | DRG 207 ==
LOC: ERS 01:04 → CCU 03:09
PROVIDERS: ADMIT Internal Medicine; ATTEND Internal Medicine
PROC: 5A1955Z Respiratory Ventilation, Greater than 96 Consecutive Hours (ICD-10-PCS; principal; 2019-10-28)
PROC: 0BH17EZ Insertion of Endotracheal Airway into Trachea, Via Natural or Artificial Opening (ICD-10-PCS; 2019-10-28)
PROC: 02HV33Z Insertion of Infusion Device into Superior Vena Cava, Percutaneous Approach (ICD-10-PCS; 2019-10-28)
DX: I26.99 Other pulmonary embolism without acute cor pulmonale (principal); Z66 Do not resuscitate; Z51.5 Encounter for palliative care; J96.01 Acute respiratory failure with hypoxia; I46.8 Cardiac arrest due to other underlying condition; K72.00 Acute and subacute hepatic failure without coma; D65 Disseminated intravascular coagulation [defibrination syndrome]; R40.2312 Coma scale, best motor response, none, at arrival to emergency department; A41.9 Sepsis, unspecified organism; R65.20 Severe sepsis without septic shock; R40.2112 Coma scale, eyes open, never, at arrival to emergency department; R40.2212 Coma scale, best verbal response, none, at arrival to emergency department; E87.2 Acidosis; G93.1 Anoxic brain damage, not elsewhere classified; N17.9 Acute kidney failure, unspecified; D62 Acute posthemorrhagic anemia; K92.2 Gastrointestinal hemorrhage, unspecified; E78.5 Hyperlipidemia, unspecified; K21.9 Gastro-esophageal reflux disease without esophagitis; E03.9 Hypothyroidism, unspecified; R31.9 Hematuria, unspecified; Z88.5 Allergy status to narcotic agent; Z79.899 Other long term (current) drug therapy; Z79.890 Hormone replacement therapy
CPT/HCPCS: 31500; 36415; 36556; 51702; 70450; 71045; 71275; 80048; 80053; 80076; 81003; 81015; 82150; 82553; 82805; 83605; 83690; 83735; 83880; 84484; 85025; 85049; 85300; 85362; 85379; 85384; 85610; 85730; 86850; 86900; 86901; 87040; 87070; 87086; 87205; 93005; 93970; 94002; 94003; 95816; 95819; 96365; 96367; 99292; C9113; J1644; J1650; J1953; J1956; J2060; J2270; J2543; J2704; J3370; J3480; J7050; Q9967

== ENCOUNTER 2019-11-02 18:40 | Inpatient (IN) | payer OTHER ==
[2019-11-02 19:16] VITALS: BMI 27.4
[2019-11-02] MEDS ORDERED: Scopolamine 1.5 mg/72 hour Patch TOP PRN (19:20)
[2019-11-02] MEDS ORDERED: Ondansetron PF 4 MG/2 ML Vial IVP PRN (19:20)
[2019-11-02] MEDS ORDERED: Lorazepam 2 MG/ML VIAL SLOW IVP PRN ×2 (19:26→19:27)
[2019-11-02] MEDS ORDERED: Atropine Sulfate 1% Ophth Soln 5 ml Bottle PO PRN (19:29)
[2019-11-02] MEDS: Scopolamine 1.5 mg/72 hour Patch TOP PRN (21:42)
[2019-11-02] MEDS: Morphine 2 MG/ML SYRINGE SLOW IVP PRN (21:43)
[2019-11-03] MEDS: Morphine 2 MG/ML SYRINGE SLOW IVP PRN ×2 (03:19→12:16)
--- NOTE | 2019-11-03 09:35 | EEG ---
Referring Physician: Antionette MENDOZA EEG # 20-03 TEST TYPE: ROUTINE PORTABLE INPATIENT REPORT: AN EEG USING THE [employer]NATIONAL TEN-TWENTY SYSTEM OF ELECTRODE PLACEMENT WAS PERFORMED. The waking background is a 9 hertz alpha frequency with superimposed theta activity. No sleep was seen. Photic stimulation was unremarkable. No epileptiform features were seen. IMPRESSION: THIS IS AN ABNORMAL STUDY FOR THE FINDINGS OF MILD DIFFUSE SLOWING CONSISTENT WITH A MILD DIFFUSE ENCEPHALOPATHIC PROCESS. Brusher Tender: EDUIN Rack Puncher: EEG.JEANETTE GAMA
[2019-11-03] MEDS ORDERED: Acetaminophen 650 MG Suppository PR PRN (12:21)
[2019-11-03] MEDS ORDERED: Lorazepam 2 MG/ML VIAL SLOW IVP PRN (12:22)
[2019-11-03] MEDS: Lorazepam 2 MG/ML VIAL SLOW IVP SCH ×3 (13:22→20:48)
--- NOTE | 2019-11-03 18:18 | PDOC.HOSPP ---
- Subjective Subjective: Seen and examined this a.m. Continues to have [place] respirations. Family at bedside, time was given for questions, all answered in detail. - Objective Vital Signs & Weight: Vital Signs (12 hours) Temp Pulse Resp BP BP Pulse Ox 11/03/19 08:10 101.9 F H 115 H 24 H 102/55 L 87 L 11/03/19 08:00 101.9 F H 115 H 24 H 102/55 L 87 L Weight Weight 160 lb Most Recent Monitor Data Heart Rate from ECG 126 Respiration from ECG 36 I&O: 11/02/19 11/03/19 11/04/19 06:59 06:59 06:59 Intake Total 0 Output Total 800 300 Balance -800 -300 Radiology Reviewed by me: Yes Hospitalist ROS - Review of Systems ROS unobtainable: due to mental status - Medication Medications: Active Medications Generic Name Dose Route Start Last Admin Trade Name Freq PRN Reason Stop Dose Admin Atropine Sulfate 4 drop 11/02/19 19:29 11/02/19 21:43 Atropine 1% Ophth Soln PO 4 drop Q2H PRN Administration SECRETIONS Lorazepam 2 mg 11/02/19 19:27 11/03/19 12:17 Ativan SLOW IVP 2 mg Q2H PRN Administration FOR AGITATION OR RESTLESSNESS Lorazepam 2 mg 11/03/19 13:00 11/03/19 16:50 Ativan SLOW IVP 2 mg Q4HR TONE Administration Morphine Sulfate 2 mg 11/02/19 19:31 11/03/19 12:16 Morphine SLOW IVP 2 mg Q15MIN PRN Administration PAIN/SOB Scopolamine 3 mg 11/02/19 19:34 11/02/19 21:42 Transderm Scop TOP 3 mg Q3D PRN Administration SECRETIONS - Exam General Appearance: ill appearing General - other findings: Does not appear to be in any pain or suffering Eye: anicteric sclera ENT: normocephalic atraumatic, dry oral mucosa Neck: supple, symmetric, no JVD Heart: no murmur, no gallops, no rubs Respiratory: rhonchi, tachypneic, wheezes (severe) Gastrointestinal: soft, non-tender, non-distended, no guarding, no rigidity Extremities: 1+ LE edema Skin: no lesions, no rashes Neurological - other findings: not oriented or responding to voice Musculoskeletal: diffuse muscle atrophy Psychiatric: not oriented Hosp A/P (1) Acute blood loss anemia Code(s): D62 - ACUTE POSTHEMORRHAGIC ANEMIA Status: Acute (2) Acute respiratory failure with hypoxia Code(s): J96.01 - ACUTE RESPIRATORY FAILURE WITH HYPOXIA Status: Acute (3) Anoxic brain injury Status: Acute (4) Cardiac arrest with pulseless electrical activity Code(s): I46.9 - CARDIAC ARREST, CAUSE UNSPECIFIED Status: Acute (5) GI bleeding Code(s): K92.2 - GASTROINTESTINAL HEMORRHAGE, UNSPECIFIED Status: Acute (6) Pulmonary embolism Code(s): I26.99 - OTHER PULMONARY EMBOLISM WITHOUT ACUTE COR PULMONALE Status : Acute - Plan Plan: medical unit general inpatient hospice palliative care consultation, recommendations appreciated aggressive pain control so that patient is not in any pain or suffering Morphine as needed anxiety control as needed Ativan as needed Scopolamine Atropine comfort care only No further blood draws, lab tests, or invasive procedures patient will in acute care hospital
[2019-11-04] MEDS: Lorazepam 2 MG/ML VIAL SLOW IVP SCH ×6 (00:54→20:52)
[2019-11-04] MEDS: Morphine 2 MG/ML SYRINGE SLOW IVP PRN ×2 (09:12→18:18)
--- NOTE | 2019-11-04 11:39 | PDOC.HOSPP ---
- Subjective Subjective: Seen and examined with family at bedside. Continues to have rapid short shallow breaths. Patient does not appear to be in any pain or discomfort. Low-grade fevers. Patient actively dying. - Objective Vital Signs & Weight: Vital Signs (12 hours) Temp Pulse Resp BP BP Pulse Ox 11/04/19 08:23 100.4 F H 123 H 48 H 130/74 79 L 11/04/19 08:00 100.4 F H 123 H 48 H 130/74 79 L Weight Weight 160 lb Most Recent Monitor Data Heart Rate from ECG 126 Respiration from ECG 36 I&O: 11/03/19 11/04/19 11/05/19 06:59 06:59 06:59 Intake Total 0 Output Total 800 650 Balance -800 -650 Hospitalist ROS - Review of Systems ROS unobtainable: due to mental status - Medication Medications: Active Medications Generic Name Dose Route Start Last Admin Trade Name Freq PRN Reason Stop Dose Admin Acetaminophen 650 mg 11/03/19 12:21 11/04/19 09:23 Tylenol IN 650 mg Q4H PRN Administration .FEVER Atropine Sulfate 4 drop 11/02/19 19:29 11/02/19 21:43 Atropine 1% Ophth Soln PO 4 drop Q2H PRN Administration SECRETIONS Lorazepam 2 mg 11/02/19 19:27 11/03/19 12:17 Ativan SLOW IVP 2 mg Q2H PRN Administration FOR AGITATION OR RESTLESSNESS Lorazepam 2 mg 11/03/19 13:00 11/04/19 09:04 Ativan SLOW IVP 2 mg Q4HR TONE Administration Morphine Sulfate 2 mg 11/02/19 19:31 11/03/19 12:16 Morphine SLOW IVP 2 mg Q15MIN PRN Administration PAIN/SOB Morphine Sulfate 2 mg 11/03/19 12:23 11/04/19 09:12 Morphine SLOW IVP 2 mg Q4H PRN Administration PAIN/DYSPNEA Scopolamine 3 mg 11/02/19 19:34 11/02/19 21:42 Transderm Scop TOP 3 mg Q3D PRN Administration SECRETIONS - Exam General Appearance: ill appearing Eye: anicteric sclera ENT: normocephalic atraumatic, moist mucosa Neck: supple, symmetric, no lymphadenopathy Heart: no murmur, no gallops Respiratory: no rales, rhonchi, tachypneic, wheezes Gastrointestinal: soft, non-tender, no guarding, no rigidity Extremities: 1+ LE edema Skin: no lesions, no rashes Neurological - other findings: Eyes closed, resting peacefully. Does not appear to be in any pain or distr Musculoskeletal: generalized weakness Psychiatric: not oriented Hosp A/P (1) Acute blood loss anemia Code(s): D62 - ACUTE POSTHEMORRHAGIC ANEMIA Status: Acute (2) Acute respiratory failure with hypoxia Code(s): J96.01 - ACUTE RESPIRATORY FAILURE WITH HYPOXIA Status: Acute (3) Anoxic brain injury Status: Acute (4) Cardiac arrest with pulseless electrical activity Code(s): I46.9 - CARDIAC ARREST, CAUSE UNSPECIFIED Status: Acute (5) GI bleeding Code(s): K92.2 - GASTROINTESTINAL HEMORRHAGE, UNSPECIFIED Status: Acute (6) Pulmonary embolism Code(s): I26.99 - OTHER PULMONARY EMBOLISM WITHOUT ACUTE COR PULMONALE Status : Acute - Plan Plan: medical unit general inpatient hospice palliative care consultation, recommendations appreciated aggressive pain control so that patient is not in any pain or suffering Morphine as needed anxiety control as needed Ativan as needed Scopolamine Atropine Tylenol as needed for fever comfort care only No further blood draws, lab tests, or invasive procedures patient will in acute care hospital
[2019-11-05] MEDS: Lorazepam 2 MG/ML VIAL SLOW IVP SCH ×6 (01:16→20:49)
[2019-11-05] MEDS: Morphine 2 MG/ML SYRINGE SLOW IVP PRN ×5 (05:51→23:42)
--- NOTE | 2019-11-05 21:07 | DIS ---
DATE OF ADMISSION: 11/02/2019 DATE OF DISCHARGE: 11/05/2019 REASON FOR HOSPITALIZATION: Cardiopulmonary arrest. SIGNIFICANT FINDINGS: The patient was found to have acute bilateral pulmonary embolisms and anoxic brain injury after cardiopulmonary arrest. PROCEDURES PERFORMED AND TREATMENTS RENDERED: The patient was admitted to the [facility] on 10/28/2019, after cardiopulmonary arrest. Please see full history and physical, consultation notes, and all progress notes for details. The patient was intubated and admitted to the intensive care unit under the care of Pulmonology/Critical Care-please see full consultation notes and progress notes for details. The patient had an [id number] arrest, was resuscitated in the field and intubated. The patient had CT scan-please see full report for details-there was identified to have bilateral pulmonary embolisms. The patient was also having GI bleeding reportedly on admission and anticoagulation was initially held. The patient was monitored in the intensive care unit and there were no further episodes of GI bleeding and a Gastroenterology consultation was requested-please see full consultation notes and progress notes from Gastroenterology for details. As there were no further episodes of bleeding in the [facility] hospital for greater than 48 hours, the patient was started on intravenous anticoagulation. The patient's blood counts were closely monitored and she was monitored clinically for any signs of gastrointestinal bleeding. There were no signs of gastrointestinal bleeding. There were no black or bloody bowel movements and hemoglobin remained overly stable and she did not require any blood transfusions. However, unfortunately, despite all of these efforts, the patient did not have any clinical improvement. The patient was off any sedation or pain medications for several days and she remained flaccid and encephalopathic. The patient was diagnosed with anoxic brain injury secondary to cardiopulmonary arrest out of the hospital and due to the extended time of the patient not having perfusion to her brain when she had cardiac arrest, there is little hope of recovery. The patient was monitored for several days in the intensive care unit in this state and she had no improvement. An EEG was performed-please see full report for details-the EEG report was identified to have diffuse slowing, however, there was no acute seizure activity. The palliative care team was consulted for further recommendations-please see full consultation notes and progress notes for details. The family electing that they would not want her mother to live in this way and she stated that she would never want to be kept alive artificially on machines if there was no hope of ever coming off. The patient's family elected to change her categorization status to a do not attempt resuscitation. After long discussions with the patient's family, they elected to withdraw care. The patient had a compassion extubation on 11/02/2019. The patient was transitioned to inpatient hospice at that time. I continued to follow over the upcoming days and I saw the patient in the morning of 11/05/2019. The patient remains encephalopathic. Eyes closed with [place] respirations, breathing greater than 30 breaths per minute. I adjusted the pain medications with a fentanyl patch and encouraged nursing staff to use intravenous morphine to titrate respirations less than 12 breaths per minute. The patient does not appear to be in any pain or discomfort and she is having no facial grimacing or other nonverbal communication that she is in pain or distress aside from her tachypnea. I spent time with the patient's family daily and gave time for questions. The patient's family understand that she will in the near future in the acute care hospital. Internal medicine will sign off at this time. CONDITION ON DISCHARGE: Critical. SPECIFIC INSTRUCTIONS FOR THE PATIENT/FAMILY: 1. Dr. Luna to handle all future orders. 2. After the patient expires, the patient will be transferred to mortuary of the family's selection. 3. Medical records can be obtained from the medical record office for further details on hospital course. DISCHARGE MEDICATIONS: Not applicable. PROGNOSIS: There is imminent cardiopulmonary arrest-Internal Medicine will sign off at this time and leave all further care to hospice physician. TIME SPENT: Greater than 40 minutes spent coordinating care and discharge process for this patient. Job ID: [id number]
[2019-11-05] MEDS: Scopolamine 1.5 mg/72 hour Patch TOP PRN (23:38)
[2019-11-06] MEDS: Lorazepam 2 MG/ML VIAL SLOW IVP SCH ×6 (00:54→21:00)
[2019-11-06] MEDS: Morphine 2 MG/ML SYRINGE SLOW IVP PRN ×2 (00:54→09:21)
[2019-11-07] MEDS: Lorazepam 2 MG/ML VIAL SLOW IVP SCH ×3 (01:00→11:07)
[2019-11-07] MEDS ORDERED: Lorazepam 2 MG/ML VIAL SLOW IVP PRN ×4 (10:00→10:30)
[2019-11-07] MEDS ORDERED: Morphine 2 MG/ML SYRINGE SLOW IVP PRN (10:06)
[2019-11-07] MEDS: Morphine 4 MG/ML VIAL SLOW IVP SCH ×3 (15:38→21:24)
[2019-11-08] MEDS: Morphine 4 MG/ML VIAL SLOW IVP SCH ×6 (00:18→21:10)
[2019-11-09] MEDS: Morphine 4 MG/ML VIAL SLOW IVP SCH ×4 (01:02→12:53)
[2019-11-09] MEDS: Scopolamine 1.5 mg/72 hour Patch TOP PRN (01:20)
[2019-11-09 08:02] VITALS: BP 105/63
[2019-11-09 08:45] VITALS: TEMP 99.4
== END 2019-11-09 13:55 | disposition hospice, inpatient (51) | DRG 951 ==
LOC: CCU 18:40 → ONC 20:31
PROVIDERS: ADMIT Family Medicine; ATTEND Family Medicine
DX: Z51.5 Encounter for palliative care (principal); J96.01 Acute respiratory failure with hypoxia; I46.9 Cardiac arrest, cause unspecified; I26.99 Other pulmonary embolism without acute cor pulmonale; A41.9 Sepsis, unspecified organism; R65.20 Severe sepsis without septic shock; D62 Acute posthemorrhagic anemia; G93.1 Anoxic brain damage, not elsewhere classified; K92.2 Gastrointestinal hemorrhage, unspecified; E87.2 Acidosis; Z88.0 Allergy status to penicillin; Z88.5 Allergy status to narcotic agent; E03.9 Hypothyroidism, unspecified; R40.2432 Glasgow coma scale score 3-8, at arrival to emergency department; G40.409 Other generalized epilepsy and epileptic syndromes, not intractable, without status epilepticus
CPT/HCPCS: J2060; J2270